=== PATIENT | female | born 1990 | race Caucasian/White ===

== ENCOUNTER 2017-06-14 16:31 | Day surgery (SDC) | payer OTHER ==
[2017-06-14 17:09] VITALS: BP 128/77; TEMP 98.5
[2017-06-14 17:10] VITALS: BMI 29.2
--- NOTE | 2017-06-14 19:29 | PDOC.LDHP ---
Labor and Delivery H&P Chief complaint: contractions HPI: 27 y/o at 36w5d, patient of Dr. Hinds, presents with contractions getting stronger since 1500. Denies VB, LOF, or decreased FM. ROS neg for HEENT, cv, pulm, gi, gu, neuro, psych, skin, musculoskeletal or constitutional symptoms other than mentioned above. 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 status reassuring with reactive NST. - Plan -: D/c home with precautions. Advised to keep all appointments. Discussed with Dr. Falcon.
== END 2017-06-14 19:08 | disposition home or self-care (01) ==
LOC: L&D/OP 16:31
PROVIDERS: ATTEND Obstetrics & Gynecology
DX: O47.03 False labor before 37 completed weeks of gestation, third trimester (principal); O99.343 Other mental disorders complicating pregnancy, third trimester; F90.9 Attention-deficit hyperactivity disorder, unspecified type; F41.9 Anxiety disorder, unspecified; O99.353 Diseases of the nervous system complicating pregnancy, third trimester; G43.909 Migraine, unspecified, not intractable, without status migrainosus; Z3A.36 36 weeks gestation of pregnancy
CPT/HCPCS: 59025; 99283

== ENCOUNTER 2017-06-15 22:16 | Day surgery (SDC) | payer OTHER ==
[2017-06-15 22:49] VITALS: BP 130/74; TEMP 98.5; BMI 29.2
--- NOTE | 2017-06-16 02:39 | SS ---
OB TRIAGE NOTE REGULAR PHYSICIAN: Nuria Hinds M.D. EVALUATING PHYSICIAN: Conrad Zapien M.D. CHIEF COMPLAINT: Contractions through the day at home. HISTORY OF PRESENT ILLNESS: Ms. Easley is a 26-year-old G3, P1-0-1-1, estimated date of confinement o f 07/08/2017, who presents complaining of regular contractions throughout the day. She denies ruptur e of membranes or vaginal bleeding. She was seen yesterday with similar complaints. Vaginal exam at that time was 2 cm and unchanged. PAST OBSTETRICAL HISTORY: Includes one early elective termination and a 38-week term . PAST MEDICAL HISTORY: ADHD. CURRENT MEDICATIONS: vitamins only. PAST SURGICAL HISTORY: Orthopedic surgery to her left foot. ALLERGIES: No known allergies. SOCIAL HISTORY: Denies tobacco or alcohol use. REVIEW OF SYSTEMS: Denies nausea, vomiting, fever, chills, vaginal bleeding or rupture of membranes. PHYSICAL EXAMINATION: VITAL SIGNS: Stable. She is afebrile. ABDOMEN: Soft, nontender and gravid. PELVIC: By the labor nurse shows the cervix to be 2 cm, 50% effaced with the vertex high. She is re examined again an hour and a half from her initial exam and it remains unchanged. Her heart ra te tracing is stable. No decelerations are seen. Uterine contractions are seen every 5-7 minutes. ASSESSMENT: 1. A 36-1/2 week intrauterine . 2. Contractions but with unchanged cervix. PLAN: The patient will be discharged to home now. She was told to rest at home and to observe her c ontractions and to return should they get stronger. She was also told to return for vaginal bleeding or rupture of membranes. She voiced understanding of her discharge instructions and was discharged in good condition.
== END 2017-06-16 01:00 | disposition home or self-care (01) ==
LOC: L&D/OP 22:16
PROVIDERS: ATTEND Obstetrics & Gynecology
DX: O47.03 False labor before 37 completed weeks of gestation, third trimester (principal); O99.343 Other mental disorders complicating pregnancy, third trimester; F90.9 Attention-deficit hyperactivity disorder, unspecified type; Z3A.36 36 weeks gestation of pregnancy; Z79.899 Other long term (current) drug therapy
CPT/HCPCS: 99283

== ENCOUNTER 2017-06-26 09:34 | Inpatient (IN) | payer OTHER ==
[2017-06-26] MEDS: Lactated Ringer's 1,000 ML IV SCH ×2 (09:55→11:10)
[2017-06-26] MEDS ORDERED: Bupivacaine 0.5% 20 ML, fentaNYL Citrate/PF 400 MCG in Sodium Chloride 0.9% 72 ML EPIDURAL SCH (10:00)
[2017-06-26] MEDS ORDERED: DISCONTINUE ALL PREVIOUS NARCOTICS FS SCH (10:00)
[2017-06-26] MEDS ORDERED: Promethazine HCl 25 MG/ML VIAL IM PRN ×2 (10:02→11:05)
[2017-06-26] MEDS ORDERED: Carboprost 250 MCG/ML AMP IM PRN (10:02)
[2017-06-26] MEDS ORDERED: HYDROcodone/Acetaminophen 5/325 mg Tablet PO PRN ×4 (10:02→22:44)
[2017-06-26] MEDS ORDERED: Ibuprofen 800 MG TAB PO PRN (10:02)
[2017-06-26] MEDS ORDERED: Acetaminophen 500 MG TAB PO PRN (10:02)
[2017-06-26] MEDS ORDERED: Diphenoxylate HCl/Atropine Tablet PO PRN ×2 (10:02)
[2017-06-26] MEDS ORDERED: Ondansetron HCl/PF 4 MG/2 ML Vial IVP PRN ×2 (10:02→11:05)
[2017-06-26] MEDS ORDERED: NS / Oxytocin 40 units/1000ml 1,000 ML IV PRN (10:02)
[2017-06-26] MEDS ORDERED: Methylergonovine 0.2 MG/ML VIAL IM PRN (10:02)
[2017-06-26] MEDS ORDERED: Misoprostol 200 MCG TAB PR PRN (10:02)
[2017-06-26] MEDS ORDERED: Lidocaine 1% (PF) 30 ML VIAL SC PRN (10:02)
[2017-06-26 10:11] VITALS: BMI 29.3
[2017-06-26 10:11] LABS: Hemoglobin 12.6 g/dL (12.0-16.0); Mean Corpuscular HGB CONC 34.4 g/dL (32.0-36.0); Mean Corpuscular Hemoglobin 30.5 pg (27.0-31.0); Mean Corpuscular Volume 88.7 fl (81.0-99.0); Mean Platelet Volume 8.2 fL (7.4-10.4); Platelet Count 210 thou/uL (130-400); RBC Distribution Width 13.3 % (11.5-14.5); Red Blood Cell (RBC) Count 4.12 mill/uL (4.20-5.40); White Blood Cell (WBC) Count 8.5 thou/uL (4.8-10.8)
[2017-06-26 10:50] LABS: Hep B Surf Ag Non-Reactive S/CO (NonReactive); Syphilis Antibody Nonreactive (Nonreactive); Syphilis Antibody Index 0.02 S/CO (<1.00 Non-Reactive)
[2017-06-26] MEDS ORDERED: Naloxone HCl 0.4 mg/ml Vial IVP PRN ×2 (11:05)
[2017-06-26] MEDS ORDERED: Eucerin (Mineral Oil/Petrolatum,White) 30 gm Jar TOP PRN (11:05)
[2017-06-26] MEDS ORDERED: diphenhydrAMINE 50 MG/ML VIAL IVP PRN (11:05)
[2017-06-26] MEDS ORDERED: ePHEDrine/0.9% NaCl/PF SYRINGE 50 mg/10 ml SLOW IVP PRN (11:05)
[2017-06-26] MEDS ORDERED: Lactated Ringer's 500 ML IV PRN (11:05)
[2017-06-26] MEDS ORDERED: Acetaminophen 325 MG TAB PO PRN (11:05)
[2017-06-26] MEDS ORDERED: Communication Order-Pharmacy FS SCH (11:15)
[2017-06-26] MEDS ORDERED: Fentanyl 4mcg/Marcaine 0.1% Cassette 100 ML EPIDURAL SCH (11:15)
[2017-06-26] MEDS: LR 500 ML/Oxytocin 10 units 500 ML IV SCH (13:17)
[2017-06-26] MEDS ORDERED: diphenhydrAMINE 25 MG CAP PO PRN (15:54)
[2017-06-26] MEDS ORDERED: Zolpidem Tartrate 5 MG TAB PO PRN (15:54)
[2017-06-26] MEDS ORDERED: Bisacodyl 10 MG SUPP PR PRN (15:54)
[2017-06-26] MEDS ORDERED: Preparation H Ointment 28 GM TUBE PR PRN (15:54)
[2017-06-26] MEDS ORDERED: Adacel (T-DAP) 0.5 ML VIAL IM ONE (15:54)
[2017-06-26] MEDS ORDERED: Lanolin Ointment 7 GM TUBE TOP PRN (15:54)
[2017-06-26] MEDS ORDERED: Milk Of Magnesia 30 ML UDCUP PO PRN (15:54)
[2017-06-26] MEDS ORDERED: Benzocaine/Menthol 20-0.5% 60 ML CAN TOP PRN (15:54)
[2017-06-26] MEDS ORDERED: NS / Oxytocin 40 units/1000ml 1,000 ML IV SCH (16:00)
[2017-06-26] MEDS: Docusate Calcium (SURFAK) 240 MG CAP PO SCH (20:24)
[2017-06-26] MEDS: Ibuprofen 800 MG TAB PO SCH (20:24)
[2017-06-27] MEDS: Ibuprofen 800 MG TAB PO SCH ×2 (04:19→13:53)
[2017-06-27] MEDS ORDERED: Prenatal Vitamin 1 TAB PO SCH (09:00)
[2017-06-27] MEDS: Lactated Ringer's 1,000 ML IV SCH ×2 (09:14→09:25)
[2017-06-27] MEDS: Ferrous Sulfate 325 MG TAB PO SCH (09:14)
[2017-06-27] MEDS: Docusate Calcium (SURFAK) 240 MG CAP PO SCH (09:15)
[2017-06-27 12:44] VITALS: BP 127/84; TEMP 98.4
[2017-06-27] MEDS: LR 500 ML/Oxytocin 10 units 500 ML IV SCH (13:53)
--- NOTE | 2017-06-27 13:56 | DN ---
DATE OF ADMISSON: 06/26/2017 ADMITTING DIAGNOSES: 1. A 27-year-old G3, P1-0-1-1 who complained of a spontaneous rupture of membranes at 10:15 a.m. 2. GBS negative. 3. History of cystic fibrosis carrier by genetic testing without declined genetics follow up. 4. Known dilated renal calyces that were bilateral and stable on serial ultrasounds. 5. History of attention deficit hyperactivity disorder and anxiety off Adderall and Xanax and stable at baseline. PROCEDURE: Vaginal delivery. ANESTHESIA: Epidural. ESTIMATED BLOOD LOSS: 200 mL. SURGEON: Nuria Hinds MD COMPLICATIONS: None. CLINICAL HISTORY: This patient is a 27-year-old female who presented for her routine OB vi sit. She was evaluated and noted to be 4 cm, 60% effaced, and -3 station. The patient 2 days prior had an appointment and was a 3.5 cm. Same effacement and station. The patient was given labor preca utions and she noted that as she left the building, she had a spontaneous rupture of membranes. It w as grossly ruptured. She was advised then to go to the hospital for direct admission. Upon admissio n, the patient was extremely uncomfortable and requested an epidural for maternal analgesia. The epi dural was placed with adequate comfort and the patient continued to progress with the addition of Pit ocin after noting contractions were 5-7 minutes apart on the monitor. It is a category 1 tracing dur ing the entirety of the admission. The patient was able to progress to complete cervical dilation an d +2 station, practice push was done and noted a tracing abnormality, which was resolved with resusci tated maneuvers on labor and delivery. When the physician arrived to continue pushing, the patient d id well without any other tracing issues, the vertex was brought to the station and in NIKITA position. DETAILS OF PROCEDURE: With good maternal effort, the head was delivered. There was noted to be a nu chal cord x2 around the neck. This was reduced at the perineum, shortly thereafter the anterior shou lder followed by the posterior shoulder followed by the remainder of the 's body was delivered. The cord was doubly clamped and cut. The infant was placed on the maternal abdomen and the nurses in attendance to delivery were stimulating the baby. Cord blood was obtained and then the placenta w as delivered spontaneously intact with a 3-vessel cord. It was noted that there was a peripheral ins ertion of the cord as well as velamentous attachment without any disruption of the membranes. Once t he placenta was discarded. The uterus, vagina, and cervix were explored and noted to be free of any lacerations. The patient was expressed and noted to be firm at the fundus and was cleansed and redra ped and allowed to attend to her infant while doing skin to skin. The infant again was a male weighi ng 7 pounds 12 ounces with Apgars of 9 and 9 at 1 and 5 minutes respectively. There were no other is sues surrounding this delivery. All needle, sponge, lap, and instrument counts were correct x2 at th e end of the procedure.
== END 2017-06-27 17:15 | disposition home or self-care (01) | DRG 775 ==
LOC: L&D 09:34 → 3SW 18:24
PROVIDERS: ADMIT Obstetrics & Gynecology; ATTEND Obstetrics & Gynecology
PROC: 10E0XZZ Delivery of Products of Conception, External Approach (ICD-10-PCS; principal; 2017-06-26)
PROC: 4A0HXCZ Measurement of Products of Conception, Cardiac Rate, External Approach (ICD-10-PCS; 2017-06-26)
DX: O42.02 Full-term premature rupture of membranes, onset of labor within 24 hours of rupture (principal); O99.344 Other mental disorders complicating childbirth; F90.9 Attention-deficit hyperactivity disorder, unspecified type; F41.9 Anxiety disorder, unspecified; O99.824 Streptococcus B carrier state complicating childbirth; O99.02 Anemia complicating childbirth; D64.9 Anemia, unspecified; Z3A.38 38 weeks gestation of pregnancy; Z37.0 Single live birth
CPT/HCPCS: 51702; 85027; 86780; 86850; 86900; 86901; 87340; J2001; J3010; J3490; J7050

== ENCOUNTER 2019-01-30 15:08 | Emergency (ER) | payer BC, OTHER ==
[~2019-01-30 15:08] MED LIST: Iopamidol-370 76% 500 ML 1 ML ONE
[2019-01-30] MEDS ORDERED: Lorazepam 2 MG/ML VIAL ONE (15:51)
[2019-01-30 16:02] LABS: #Eosinphils 0.1 thou/uL (0.0-0.7); #Lymphocytes 1.9 thou/uL (1.20-3.40); #Monocytes 0.5 thou/uL (0.11-0.59); #Neutrophils 11.8 thou/uL (1.40-6.50); %Eosinophils 0.4 % (0.0-10.0); %Lymphocytes 13.2 % (21.0-51.0); %Monocytes 3.5 % (0.0-10.0); %Neutrophils 82.8 % (42.0-75.0); Hemoglobin 15.5 g/dL (12.0-16.0); Mean Corpuscular HGB CONC 35.6 g/dL (32.0-36.0); Mean Corpuscular Hemoglobin 31.4 pg (27.0-31.0); Mean Corpuscular Volume 88.3 fL (78.0-98.0); Mean Platelet Volume 7.5 fL (7.4-10.4); Platelet Count 290 thou/uL (130-400); RBC Distribution Width 11.3 % (11.5-14.5); Red Blood Cell (RBC) Count 4.92 mill/uL (4.20-5.40); White Blood Cell (WBC) Count 14.3 thou/uL (4.8-10.8)
[2019-01-30 16:24] LABS: ALT (SGPT) 12 U/L (8-55); AST (SGOT) 15 U/L (5-34); Albumin 4.9 g/dL (3.5-5.0); Alkaline Phosphatase 82 U/L (40-110); Anion Gap 13 mmol/L (10-20); BUN (Urea Nitrogen) 14 mg/dL (7.0-18.7); Bilirubin, Total 0.6 mg/dL (0.2-1.2); CK (CPK) 99 U/L (29-168); Calc. Creatinine Clearance 0 mL/min (70-130); Calcium 9.9 mg/dL (7.8-10.44); Carbon Dioxide 24 mmol/L (22-29); Chloride 106 mmol/L (98-107); Estimated GFR-MDRD 75; Globulin 2.5 g/dL (2.4-3.5); Glucose 138 mg/dL (70-105); Potassium 4.2 mmol/L (3.5-5.1); Protein, Total 7.4 g/dL (6.0-8.3); Sodium 139 mmol/L (136-145)
[2019-01-30 16:30] LABS: BHCG - Serum Negative (NEGATIVE); Pregs Control Background? CLEAR/WHITE (CLR/WHITE); Pregs Control Bar Appear? YES (CONTROL BAR)
[2019-01-30] MEDS ORDERED: Ketorolac Tromethamine 30 MG/ML VIAL ONE (17:03)
--- NOTE | 2019-01-30 17:09 | CT ---
CTA Angio Chest W WO Con HISTORY: Chest pain COMPARISON: None. FINDINGS: The lungs are clear of any infiltrative process. There is no significant mediastinal or hilar lymphadenopathy. The thoracic aorta is normal in caliber . There is good pulmonary artery opacification and no CT evidence for pulmonary embolus. Visualized liver parenchyma shows no focal findings. Right and left adrenal glands are normal IMPRESSION: No CT evidence for pulmonary embolus.
--- NOTE | 2019-02-03 13:53 | EKG ---
Test Reason : Blood Pressure : / mmHG Vent. Rate : 102 BPM Atrial Rate : 102 BPM P-R Int : 154 ms QRS Dur : 076 ms QT Int : 328 ms P-R-T Axes : 073 041 050 degrees QTc Int : 427 ms Sinus tachycardia Possible Left atrial enlargement Borderline ECG Confirmed by YUE HIGHTOWER MD ([id number]), web editor MARCO BLACK ([id number]) on 02/03/2019 1:53:25 PM Referred By: Confirmed By:YUE HIGHTOWER MD
== END 2019-01-30 19:25 | disposition home or self-care (01) ==
LOC: ERS 15:08
DX: R07.9 Chest pain, unspecified (principal); F41.1 Generalized anxiety disorder; R19.7 Diarrhea, unspecified; F32.9 Major depressive disorder, single episode, unspecified; Z79.899 Other long term (current) drug therapy
CPT/HCPCS: 71275; 80053; 82550; 83690; 84484; 84703; 85025; 93005; 96361; 96372; 96374; 96375; J0500; J1885; J2060; Q9967

== ENCOUNTER 2019-02-12 07:59 | Outpatient (CLI) | payer BC ==
--- NOTE | 2019-02-12 08:13 | ULT ---
GALLBLADDER ULTRASOUND: HISTORY: Right upper quadrant abdominal pain FINDINGS: The liver demonstrates homogeneous echotexture without focal mass or intrahepatic biliary ductal dila tation. No gallstones, gallbladder wall thickening or pericholecystic fluid are seen. The right kidney and pancreas are normal. The common duct [id number] in diameter. No free fluid is seen in the [place]'s pouch. IMPRESSION: Normal exam.
== END 2019-02-12 08:00 | disposition home or self-care (01) ==
LOC: BICULT 07:59
PROVIDERS: ATTEND Specialist
DX: R10.11 Right upper quadrant pain (principal)
CPT/HCPCS: 76705

== ENCOUNTER 2019-02-18 11:02 | Outpatient (CLI) | payer BC ==
--- NOTE | 2019-02-18 15:47 | NM ---
HEPATOBILIARY SCAN: HISTORY:Right upper quadrant pain RADIOPHARMACEUTICAL: 5.1 mCi Technetium 99m Mebrofenin injected intravenously FINDINGS: There is normal tracer extraction by the liver with normal excretion into the biliary tracts and smal l bowel loops and normal filling of the gallbladder. The calculated gallbladder ejection fraction following an oral fatty meal measures 95%. IMPRESSION:Normal exam.
== END 2019-02-18 11:03 | disposition home or self-care (01) ==
LOC: NM 11:02
PROVIDERS: ATTEND Specialist
DX: K81.9 Cholecystitis, unspecified (principal); R10.9 Unspecified abdominal pain
CPT/HCPCS: 78227; A9537

== ENCOUNTER 2019-08-04 05:53 | Outpatient (CLI) | payer BC, OTHER ==
[2019-08-04 11:25] LABS: BHCG - Serum Negative (NEGATIVE); Pregs Control Background? CLEAR/WHITE (CLR/WHITE); Pregs Control Bar Appear? YES (CONTROL BAR)
[2019-08-04 11:29] LABS: #Eosinphils 0.2 thou/uL (0.0-0.7); #Lymphocytes 2.8 thou/uL (1.20-3.40); #Monocytes 0.6 thou/uL (0.11-0.59); #Neutrophils 5.2 thou/uL (1.40-6.50); %Basophils 0.4 % (0.0-1.0); %Eosinophils 1.9 % (0.0-10.0); %Lymphocytes 31.5 % (21.0-51.0); %Neutrophils 59.2 % (42.0-75.0); Hemoglobin 13.4 g/dL (12.0-16.0); Mean Corpuscular HGB CONC 35.1 g/dL (32.0-36.0); Mean Corpuscular Volume 91.2 fL (78.0-98.0); Mean Platelet Volume 8.1 fL (7.4-10.4); Platelet Count 272 thou/uL (130-400); RBC Distribution Width 11.4 % (11.5-14.5); Red Blood Cell (RBC) Count 4.19 mill/uL (4.20-5.40); White Blood Cell (WBC) Count 8.8 thou/uL (4.8-10.8)
[2019-08-04 11:45] LABS: ALT (SGPT) 12 U/L (8-55); AST (SGOT) 14 U/L (5-34); Albumin 4.5 g/dL (3.5-5.0); Alkaline Phosphatase 75 U/L (40-110); Anion Gap 13 mmol/L (10-20); BUN (Urea Nitrogen) 12 mg/dL (7.0-18.7); Bilirubin, Total 0.2 mg/dL (0.2-1.2); Calc. Creatinine Clearance 0 mL/min (70-130); Calcium 9.3 mg/dL (7.8-10.44); Carbon Dioxide 25 mmol/L (22-29); Chloride 107 mmol/L (98-107); Estimated GFR-MDRD Greater than 90; Globulin 2.4 g/dL (2.4-3.5); Glucose 86 mg/dL (70-105); Potassium 4.8 mmol/L (3.5-5.1); Protein, Total 6.9 g/dL (6.0-8.3); Sodium 140 mmol/L (136-145)
[2019-08-05 13:53] LABS: SARS-CoV-2 MS2 Positive; SARS-CoV-2 N Gene Negative; SARS-CoV-2 S Gene Negative; SARS-CoV-2 orf1ab Negative
== END 2019-08-04 05:54 | disposition home or self-care (01) ==
LOC: LABBT 05:53
PROVIDERS: ATTEND Specialist
DX: Z01.812 Encounter for preprocedural laboratory examination (principal); Z11.59 Encounter for screening for other viral diseases; K81.9 Cholecystitis, unspecified
CPT/HCPCS: 80053; 84703; 85025; 87635; U0003

== ENCOUNTER 2019-08-07 06:10 | Day surgery (SDC) | payer BC ==
[2019-08-03 12:47] VITALS: BMI 23.6
[2019-08-07] MEDS ORDERED: Acetaminophen 500 MG TAB ONE (06:36)
[2019-08-07] MEDS ORDERED: Ketorolac Tromethamine 30 MG/ML VIAL ONE (06:36)
[2019-08-07] MEDS ORDERED: Scopolamine 1.5 mg/72 hour Patch ONE (06:45)
[2019-08-07] MEDS ORDERED: Lidocaine 1% w/Epinephrine 1:100K 20 ML VIAL ONE (06:51)
[2019-08-07] MEDS ORDERED: Bupivacaine PF 0.5% 30 ML VIAL ONE (06:51)
[2019-08-07] MEDS ORDERED: Midazolam HCl 2 mg/2 ml Vial ONE (07:36)
[2019-08-07] MEDS ORDERED: Fentanyl 100 MCG/2 ML VIAL ONE ×3 (07:38→10:06)
--- NOTE | 2019-08-07 09:50 | OP ---
DATE OF PROCEDURE: 08/07/2019 PREOPERATIVE DIAGNOSES: Chronic cholecystitis, acalculous. POSTOPERATIVE DIAGNOSES: Chronic cholecystitis, acalculous. PROCEDURE PERFORMED: Laparoscopic video cholecystectomy. ANESTHESIA: General, local 0.5% Marcaine with epinephrine, 30 mL mixed with 1% Xylocaine with epinephrine, 20 mL. DESCRIPTION OF PROCEDURE: The patient was taken to the operating room, under general anesthesia, abdomen was prepared with ChloraPrep and draped in routine fashion. Local anesthetic mixture was infiltrated into the skin and subcutaneous tissue about each port site. Infraumbilical incision was made. Pneumoperitoneum to 15 mm was obtained with a Veress needle, replacing with a 5 port. Video laparoscope was inserted. Right subcostal incision was made at midclavicular entrance line, and the 5 port was placed. Right subxiphoid incision was made, and 11 port was placed. Liver appeared to be normal. Gallbladder was distended with bile and grossly appeared to be normal. No other abnormalities noted within the abdominal cavity. Fundus of the gallbladder was grasped at the cephalad. Infundibulum was grasped and reflected laterally. Cystic artery and duct were dissected free. Critical view was obtained. Cystic artery and duct were doubly clipped proximally and divided. Gallbladder was dissected free from liver bed, obtaining good hemostasis prior to division of final peritoneal attachments. Gallbladder and contents were removed, submitted to Pathology. Good hemostasis assured with cautery. Pneumoperitoneum and irrigant were evacuated. All instruments were removed. All skin incisions were approximated with interrupted subdermal 4-0 Monocryl, and [place] glue was applied. The patient tolerated the procedure well. Job ID: [id number]
[2019-08-07] MEDS ORDERED: Labetalol HCl 100 MG/20 ML VIAL ONE (10:14)
[2019-08-07] MEDS ORDERED: HYDROcodone/Acetaminophen 5/325 mg Tablet ONE ×2 (10:56)
[2019-08-07] MEDS ORDERED: Ondansetron PF 4 MG/2 ML Vial ONE (10:58)
[2019-08-07] MEDS ORDERED: Rocuronium Bromide 10 MG/ML (10ML VIAL) ONE (10:58)
[2019-08-07] MEDS ORDERED: Dexamethasone 20 MG/5 ML VIAL ONE (10:58)
[2019-08-07] MEDS ORDERED: Glycopyrrolate 0.2 MG/ML 5 ML SYRINGE ONE (10:58)
[2019-08-07] MEDS ORDERED: Lidocaine 1% PF 5 ML VIAL ONE (10:58)
[2019-08-07] MEDS ORDERED: PROPOFOL 200 MG/20 ML VIAL ONE (10:58)
== END 2019-08-07 11:40 | disposition home or self-care (01) ==
LOC: SDC 06:10
PROVIDERS: ATTEND Specialist
PROC: 0FT44ZZ Resection of Gallbladder, Percutaneous Endoscopic Approach (ICD-10-PCS; principal; 2019-08-07)
DX: K81.1 Chronic cholecystitis (principal); Z79.899 Other long term (current) drug therapy
CPT/HCPCS: 88304; J0690; J1100; J1885; J2001; J2250; J2405; J2704; J3010; S0020

== ENCOUNTER 2019-10-26 11:42 | Outpatient (CLI) | payer BC ==
--- NOTE | 2019-10-26 12:15 | RAD ---
XR Knee Lt 4 View STANDARD HISTORY: Unilateral primary osteoarthritis of knee FINDINGS: No fracture or dislocation is identified. No significant osteophytosis is seen.
== END 2019-10-26 11:43 | disposition home or self-care (01) ==
LOC: BICRAD 11:42
PROVIDERS: ATTEND Specialist
DX: M17.12 Unilateral primary osteoarthritis, left knee (principal)

== ENCOUNTER 2021-03-24 15:31 | Outpatient (CLI) | payer BC | END 2021-03-24 15:32 | disposition home or self-care (01) | LOC: BICULT 15:31 | PROVIDERS: ATTEND Specialist | DX: E04.1 Nontoxic single thyroid nodule (principal) | CPT/HCPCS: 76536 ==

== ENCOUNTER 2021-04-06 12:42 | Day surgery (SDC) | payer BC ==
[2021-04-05 13:20] VITALS: BMI 22.8
[2021-04-06] MEDS ORDERED: Sodium Bicarbonate 2.5 MEQ/5 ML VIAL ONE (12:47)
[2021-04-06] MEDS ORDERED: Lidocaine 1% PF 5 ML VIAL ONE (12:47)
[2021-04-06 14:00] VITALS: BP 103/67
== END 2021-04-06 13:35 | disposition home or self-care (01) ==
LOC: ULT 12:42 → EDSTATUS 13:00 → ULT 13:35
PROVIDERS: ATTEND Specialist
PROC: 0G9G3ZX Drainage of Left Thyroid Gland Lobe, Percutaneous Approach, Diagnostic (ICD-10-PCS; principal; 2021-04-06)
DX: E04.1 Nontoxic single thyroid nodule (principal); Z79.899 Other long term (current) drug therapy
CPT/HCPCS: 10005; 88173; 88305

== ENCOUNTER 2022-04-12 08:24 | Outpatient (CLI) | payer BC | END 2022-04-12 08:25 | disposition home or self-care (01) | LOC: RAD 08:24 | PROVIDERS: ATTEND Internal Medicine Critical Care Medicine | DX: R06.00 Dyspnea, unspecified (principal) | CPT/HCPCS: 71046 ==

== ENCOUNTER 2022-06-06 12:00 | Inpatient (IN) | payer BC ==
[~2022-06-06 12:00] MED LIST changes: +Iopamidol 370 76% 100 ML VIAL ONE; -Iopamidol-370 76% 500 ML 1 ML ONE
[2022-06-06] MEDS ORDERED: Ipratropium/Albuterol 3 ML NEB ONE (12:12)
[2022-06-06] MEDS ORDERED: predniSONE 20 MG TAB ONE (12:14)
[2022-06-06 12:45] LABS: #Basophils 0.1 thou/uL (0.0-0.2); #Lymphocytes 1.5 thou/uL (1.20-3.40); #Monocytes 0.2 thou/uL (0.11-0.59); #Neutrophils 9.3 thou/uL (1.40-6.50); %Basophils 0.5 % (0.0-1.0); %Eosinophils 0.3 % (0.0-10.0); %Lymphocytes 13.5 % (21.0-51.0); %Monocytes 1.8 % (0.0-10.0); Hemoglobin 14.1 g/dL (12.0-16.0); Mean Corpuscular HGB CONC 35.4 g/dL (32.0-36.0); Mean Corpuscular Hemoglobin 32.2 pg (27.0-31.0); Mean Corpuscular Volume 91.1 fl (78.0-98.0); Mean Platelet Volume 6.9 fL (7.4-10.4); Platelet Count 388 10x3/uL (130-400); RBC Distribution Width 10.8 % (11.5-14.5); Red Blood Cell (RBC) Count 4.37 mill/uL (4.20-5.40); White Blood Cell (WBC) Count 11.1 10x3/uL (4.8-10.8)
[2022-06-06] MEDS ORDERED: Magnesium 2 GM/50 ML BAG (IN WATER) ONE ×2 (13:00→13:02)
[2022-06-06 13:14] LABS: BHCG - Serum Negative (NEGATIVE); Pregs Control Background? CLEAR/WHITE (CLR/WHITE); Pregs Control Bar Appear? YES (CONTROL BAR)
[2022-06-06 13:24] LABS: ALT (SGPT) 32 U/L (8-55); AST (SGOT) 25 U/L (5-34); Albumin 5.1 g/dL (3.5-5.0); Alkaline Phosphatase 82 U/L (40-110); Anion Gap 19 mmol/L (10-20); BUN (Urea Nitrogen) 12 mg/dL (7.0-18.7); Bilirubin, Total 0.4 mg/dL (0.2-1.2); Calc. Creatinine Clearance 0 mL/min (70-130); Calcium 10.5 mg/dL (7.8-10.44); Carbon Dioxide 16 mmol/L (22-29); Chloride 105 mmol/L (98-107); Estimated GFR 89; Globulin 2.9 g/dL (2.4-3.5); Glucose 122 mg/dL (70-105); Potassium 4.1 mmol/L (3.5-5.1); Sodium 136 mmol/L (136-145)
[2022-06-06] MEDS ORDERED: Ondansetron PF 4 MG/2 ML Vial ONE (13:46)
[2022-06-06] MEDS ORDERED: Morphine 4 MG/ML VIAL ONE (13:46)
[2022-06-06 14:51] LABS: SARS-CoV-2 NAA Rapid Test Not Detected (NotDetected)
[2022-06-06 16:27] VITALS: BMI 23.3
[2022-06-06] MEDS ORDERED: Ondansetron ODT 4 MG TAB PO PRN (17:06)
[2022-06-06] MEDS ORDERED: Acetaminophen/Codeine 30-300mg Tablet PO SCH (17:15)
[2022-06-06] MEDS ORDERED: Lorazepam 2 MG/ML VIAL SLOW IVP SCH ×2 (17:15→21:00)
[2022-06-06] MEDS: methylPREDNISolone Sod Succ 40 MG VIAL IVP SCH (17:43)
[2022-06-06] MEDS ORDERED: Magnesium 2 GM/50 ML(in water) 2 GM in Premix Bag 1 BAG IVPB SCH (18:00)
[2022-06-06] MEDS: Budesonide 0.5 MG/2 ML NEB NEB SCH (18:39)
[2022-06-06] MEDS: Promethazine 25 MG TAB PO PRN (19:43)
[2022-06-06] MEDS: Montelukast Sodium 10 mg Tablet PO SCH (21:06)
[2022-06-06] MEDS: Gabapentin 300 MG CAP PO SCH (21:06)
[2022-06-06] MEDS: Acetaminophen/Codeine 30-300mg Tablet PO SCH (21:06)
[2022-06-06] MEDS: traZODone HCl 50 MG TAB PO PRN (21:07)
[2022-06-06] MEDS: Benzonatate 100 MG CAP PO PRN (21:07)
[2022-06-06] MEDS: Famotidine 20 MG TAB PO SCH (21:07)
[2022-06-06] MEDS: tiZANidine HCl 4 MG TAB PO SCH (21:07)
[2022-06-06] MEDS: Diltiazem HCl SR 90 mg Capsule PO SCH (21:08)
[2022-06-07] MEDS: Acetaminophen/Codeine 30-300mg Tablet PO SCH ×6 (00:38→21:01)
[2022-06-07] MEDS: methylPREDNISolone Sod Succ 40 MG VIAL IVP SCH ×4 (00:39→17:55)
[2022-06-07] MEDS: Benzonatate 100 MG CAP PO PRN ×3 (05:13→20:45)
[2022-06-07] MEDS: Budesonide 0.5 MG/2 ML NEB NEB SCH ×2 (06:37→18:27)
[2022-06-07 08:35] LABS: #Lymphocytes 0.9 thou/uL (1.20-3.40); #Monocytes 0.4 thou/uL (0.11-0.59); #Neutrophils 13.4 thou/uL (1.40-6.50); %Eosinophils 0.2 % (0.0-10.0); %Monocytes 2.5 % (0.0-10.0); %Neutrophils 91.3 % (42.0-75.0); Hemoglobin 12.9 g/dL (12.0-16.0); Mean Corpuscular HGB CONC 35.8 g/dL (32.0-36.0); Mean Corpuscular Hemoglobin 32.9 pg (27.0-31.0); Mean Corpuscular Volume 91.9 fl (78.0-98.0); Mean Platelet Volume 7.3 fL (7.4-10.4); Platelet Count 315 10x3/uL (130-400); RBC Distribution Width 10.9 % (11.5-14.5); Red Blood Cell (RBC) Count 3.92 mill/uL (4.20-5.40); White Blood Cell (WBC) Count 14.7 10x3/uL (4.8-10.8)
[2022-06-07] MEDS: Famotidine 20 MG TAB PO SCH (09:04)
[2022-06-07] MEDS: Gabapentin 300 MG CAP PO SCH ×3 (09:04→20:44)
[2022-06-07] MEDS: tiZANidine HCl 4 MG TAB PO SCH ×3 (09:05→20:45)
[2022-06-07] MEDS: Diltiazem HCl SR 90 mg Capsule PO SCH ×2 (09:05→20:45)
[2022-06-07] MEDS: Promethazine 25 MG TAB PO PRN ×2 (12:45→20:54)
[2022-06-07] MEDS: traZODone HCl 50 MG TAB PO PRN (20:45)
[2022-06-07] MEDS: Montelukast Sodium 10 mg Tablet PO SCH (20:45)
[2022-06-08] MEDS: Acetaminophen/Codeine 30-300mg Tablet PO SCH ×6 (00:35→21:12)
[2022-06-08] MEDS: methylPREDNISolone Sod Succ 40 MG VIAL IVP SCH ×2 (00:36→05:38)
[2022-06-08] MEDS ORDERED: methylPREDNISolone Sod Succ 40 MG VIAL IVP SCH (08:10)
[2022-06-08] MEDS: Budesonide 0.5 MG/2 ML NEB NEB SCH ×2 (08:24→18:24)
[2022-06-08] MEDS: Benzonatate 100 MG CAP PO PRN ×3 (08:57→21:18)
[2022-06-08] MEDS: Gabapentin 300 MG CAP PO SCH ×3 (08:57→21:14)
[2022-06-08] MEDS: Diltiazem HCl SR 90 mg Capsule PO SCH ×2 (08:57→21:13)
[2022-06-08] MEDS: tiZANidine HCl 4 MG TAB PO SCH ×3 (08:58→21:13)
[2022-06-08] MEDS ORDERED: Theophylline ER 450 MG TAB PO SCH (09:00)
[2022-06-08] MEDS: methylPREDNISolone Sod Succ/PF 125 MG/2 ML VIAL IVP SCH ×2 (12:07→16:59)
[2022-06-08] MEDS ORDERED: Dextromethorphan 30 MG/5 ML (89 ML BOTTLE) PO PRN ×2 (14:08→14:11)
[2022-06-08] MEDS ORDERED: Ipratropium Bromide 0.03% Nasal Inhaler 30 ml Bottle EA NARE SCH (15:30)
[2022-06-08] MEDS: Montelukast Sodium 10 mg Tablet PO SCH (21:13)
[2022-06-08] MEDS: Ipratropium Bromide 0.03% Nasal Inhaler 30 ml Bottle EA NARE SCH (21:15)
[2022-06-08] MEDS: traZODone HCl 50 MG TAB PO PRN (21:18)
[2022-06-09] MEDS: methylPREDNISolone Sod Succ/PF 125 MG/2 ML VIAL IVP SCH ×2 (01:02→06:39)
[2022-06-09] MEDS: Acetaminophen/Codeine 30-300mg Tablet PO SCH ×6 (01:03→22:28)
[2022-06-09] MEDS: Budesonide 0.5 MG/2 ML NEB NEB SCH ×2 (07:42→18:32)
[2022-06-09] MEDS: tiZANidine HCl 4 MG TAB PO SCH ×3 (09:15→22:30)
[2022-06-09] MEDS: Diltiazem HCl SR 90 mg Capsule PO SCH ×2 (09:15→22:29)
[2022-06-09] MEDS: Gabapentin 300 MG CAP PO SCH ×3 (09:16→22:29)
[2022-06-09] MEDS: Ipratropium Bromide 0.03% Nasal Inhaler 30 ml Bottle EA NARE SCH ×3 (09:16→22:30)
[2022-06-09] MEDS ORDERED: azaTHIOprine 50 MG TAB PO SCH (11:00)
[2022-06-09] MEDS ORDERED: Mycophenolate 250 MG CAP PO SCH (11:15)
[2022-06-09] MEDS: methylPREDNISolone Sod Succ 40 MG VIAL IVP SCH ×2 (14:28→22:30)
[2022-06-09] MEDS: Promethazine 25 MG TAB PO PRN (17:13)
[2022-06-09] MEDS: traZODone HCl 50 MG TAB PO PRN (22:28)
[2022-06-09] MEDS: Montelukast Sodium 10 mg Tablet PO SCH (22:29)
[2022-06-09] MEDS: Benzonatate 100 MG CAP PO PRN (22:30)
[2022-06-09] MEDS: Mycophenolate 250 MG CAP PO SCH (22:33)
[2022-06-10] MEDS: Acetaminophen/Codeine 30-300mg Tablet PO SCH ×3 (02:39→07:36)
[2022-06-10] MEDS: methylPREDNISolone Sod Succ 40 MG VIAL IVP SCH (06:43)
[2022-06-10] MEDS: Benzonatate 100 MG CAP PO PRN (06:43)
[2022-06-10] MEDS: Budesonide 0.5 MG/2 ML NEB NEB SCH (07:11)
[2022-06-10] MEDS: Gabapentin 300 MG CAP PO SCH (07:35)
[2022-06-10] MEDS: Mycophenolate 250 MG CAP PO SCH (07:35)
[2022-06-10] MEDS: Diltiazem HCl SR 90 mg Capsule PO SCH (07:35)
[2022-06-10] MEDS: Ipratropium Bromide 0.03% Nasal Inhaler 30 ml Bottle EA NARE SCH (07:36)
[2022-06-10] MEDS: tiZANidine HCl 4 MG TAB PO SCH (07:36)
[2022-06-10] MEDS ORDERED: azaTHIOprine 50 MG TAB PO SCH (09:00)
[2022-06-10 11:25] VITALS: BP 132/78; TEMP 98.5
== END 2022-06-10 14:14 | disposition home or self-care (01) | DRG 202 ==
LOC: ERS 12:00 → T4-A 14:56 → OBSVTOIN 06-07 16:36 → 2NO 06-08 11:02
PROVIDERS: ADMIT Specialist; ATTEND Specialist
DX: J45.51 Severe persistent asthma with (acute) exacerbation (principal); M33.13 Other dermatomyositis without myopathy; F98.8 Other specified behavioral and emotional disorders with onset usually occurring in childhood and adolescence; F41.1 Generalized anxiety disorder; I10 Essential (primary) hypertension; F32.A Depression, unspecified; F90.9 Attention-deficit hyperactivity disorder, unspecified type; G43.909 Migraine, unspecified, not intractable, without status migrainosus; Z79.51 Long term (current) use of inhaled steroids; Z79.899 Other long term (current) drug therapy; Z90.49 Acquired absence of other specified parts of digestive tract; Z79.01 Long term (current) use of anticoagulants
CPT/HCPCS: 36415; 36416; 71045; 71275; 76536; 80053; 82785; 83880; 84443; 84484; 84703; 85025; 85379; 93005; 93306; 94640; 96365; 96366; 96375; 96376; G0378; J1650; J2060; J2270; J2405; J2920; J2930; J3475; J7500; J7512; J7517; J7611; J7620; J7626; Q0169; Q9967

== ENCOUNTER 2022-08-13 07:41 | Outpatient (CLI) | payer BC ==
[2022-08-13 08:46] LABS: Hemoglobin 13.8 g/dL (12.0-15.5); Mean Corpuscular HGB CONC 32.9 g/dL (32.0-36.0); Mean Corpuscular Hemoglobin 30.3 pg (27.0-33.0); Mean Corpuscular Volume 91.9 fl (81.6-98.3); Mean Platelet Volume 9.5 fl (7.4-10.4); Platelet Count 312 10x3/uL (150-450); RBC Distribution Width 13.1 % (11.5-14.5); Red Blood Cell (RBC) Count 4.56 10x6/uL (3.90-5.03); White Blood Cell (WBC) Count 7.4 10x3/uL (3.5-10.5)
[2022-08-13 08:50] LABS: BHCG - Serum Negative (NEGATIVE)
[2022-08-13 08:51] LABS: Pregs Control Background? CLEAR/WHITE (CLR/WHITE); Pregs Control Bar Appear? YES (CONTROL BAR)
[2022-08-13 08:57] LABS: Anion Gap 15 mmol/L (10-20); BUN (Urea Nitrogen) 11 mg/dL (7.0-18.7); Calc. Creatinine Clearance 0 mL/min (70-130); Calcium 9.5 mg/dL (7.8-10.44); Carbon Dioxide 21 mmol/L (22-29); Chloride 106 mmol/L (98-107); Estimated GFR 100; Glucose 86 mg/dL (70-105); Potassium 4.6 mmol/L (3.5-5.1); Sodium 137 mmol/L (136-145)
== END 2022-08-13 07:42 | disposition home or self-care (01) ==
LOC: LABBT 07:41
PROVIDERS: ATTEND Otolaryngology Plastic Surgery within the Head & Neck
DX: Z01.812 Encounter for preprocedural laboratory examination (principal); J32.0 Chronic maxillary sinusitis; J32.1 Chronic frontal sinusitis; J32.2 Chronic ethmoidal sinusitis; J34.3 Hypertrophy of nasal turbinates; J32.3 Chronic sphenoidal sinusitis
CPT/HCPCS: 80048; 84703; 85027

== ENCOUNTER 2022-08-15 10:34 | Day surgery (SDC) | payer BC ==
[2022-08-13 08:15] VITALS: BMI 24.9
[2022-08-15] MEDS ORDERED: Fentanyl 250 MCG/5 ML VIAL ONE (11:15)
[2022-08-15] MEDS ORDERED: Oxymetazoline HCl 0.05% (30 ML BOT) ONE ×2 (12:17→12:45)
[2022-08-15] MEDS ORDERED: EPINEPHrine 1 MG/ML AMP ONE (12:45)
[2022-08-15] MEDS ORDERED: Midazolam HCl 2 mg/2 ml Vial ONE ×2 (12:45→14:53)
[2022-08-15] MEDS ORDERED: Lidocaine 1% (PF) 30 ML VIAL ONE (12:45)
[2022-08-15] MEDS ORDERED: PROPOFOL 200 MG/20 ML VIAL ONE (13:15)
[2022-08-15] MEDS ORDERED: Dexamethasone 20 MG/5 ML VIAL ONE (13:15)
[2022-08-15] MEDS ORDERED: Lidocaine 1% PF 5 ML VIAL ONE (13:15)
[2022-08-15] MEDS ORDERED: Rocuronium Bromide 10 MG/ML (10ML VIAL) ONE (13:15)
[2022-08-15] MEDS ORDERED: Ondansetron PF 4 MG/2 ML Vial ONE (13:15)
[2022-08-15] MEDS ORDERED: Ketorolac Tromethamine 30 MG/ML VIAL ONE (13:15)
[2022-08-15] MEDS ORDERED: fentaNYL PF 100 MCG/2 ML SYRINGE ONE (14:14)
[2022-08-15] MEDS ORDERED: Dexmedetomidine 200 MCG/2 ML VIAL ONE (14:32)
[2022-08-15] MEDS ORDERED: fentaNYL 50 mcg/mL 1 mL Vial ONE (14:40)
== END 2022-08-15 17:20 | disposition home or self-care (01) ==
LOC: SDC 10:34
PROVIDERS: ATTEND Otolaryngology Plastic Surgery within the Head & Neck
PROC: 09BT8ZZ Excision of Left Frontal Sinus, Via Natural or Artificial Opening Endoscopic (ICD-10-PCS; principal; 2022-08-15)
PROC: 09BU4ZZ Excision of Right Ethmoid Sinus, Percutaneous Endoscopic Approach (ICD-10-PCS; principal; 2022-08-15)
PROC: 09BV4ZZ Excision of Left Ethmoid Sinus, Percutaneous Endoscopic Approach (ICD-10-PCS; principal; 2022-08-15)
DX: J34.3 Hypertrophy of nasal turbinates (principal); J32.4 Chronic pansinusitis; J01.80 Other acute sinusitis; J45.909 Unspecified asthma, uncomplicated; Z90.49 Acquired absence of other specified parts of digestive tract
CPT/HCPCS: 87070; 87205; J0171; J1100; J1885; J2001; J2250; J2405; J2704; J3010; J7611

== ENCOUNTER 2022-10-17 10:46 | Outpatient (CLI) | payer BC | END 2022-10-17 10:47 | disposition home or self-care (01) | LOC: RAD 10:46 | PROVIDERS: ATTEND Plastic Surgery Surgery of the Hand | DX: R06.00 Dyspnea, unspecified (principal) | CPT/HCPCS: 71046 ==

== ENCOUNTER 2022-10-20 13:51 | Emergency (ER) | payer BC ==
[2022-10-20] MEDS ORDERED: LORazepam 2 MG/ML SYR.(CARPUJECT) ONE (13:56)
[2022-10-20] MEDS ORDERED: Ipratropium/Albuterol 3 ML NEB ONE (13:57)
[2022-10-20 14:18] LABS: Actual Bicarbonate (HCO3v) 15.7 mEq/L (22-28); Analyzer IN Cardio ER; Base Excess -3.1 mEq/L (-2.0 to +3.0); Chloride (VBG) 103 mmol/L (98-106); Hematocrit-VBG 44 % (36.0-47.0); Hemoglobin (Hb) 14.8 g/dL (11.7-15.5); pH (venous) 7.582 (7.32-7.43)
[2022-10-20 14:23] LABS: #Monocytes 0.2 thou/uL (0.11-0.59); #Neutrophils 4.5 thou/uL (1.40-6.50); %Basophils 0.2 % (0.0-1.0); %Lymphocytes 20.1 % (21.0-51.0); %Monocytes 3.7 % (0.0-10.0); %Neutrophils 75.5 % (42.0-75.0); Hematocrit 38.4 % (36.0-47.0); Hemoglobin 13.3 g/dL (12.0-16.0); Mean Corpuscular HGB CONC 34.6 g/dL (32.0-36.0); Mean Corpuscular Hemoglobin 30.3 pg (27.0-31.0); Mean Corpuscular Volume 87.5 fl (78.0-98.0); Mean Platelet Volume 9.1 fL (7.4-10.4); Platelet Count 409 10x3/uL (130-400); RBC Distribution Width 12.2 % (11.5-14.5); Red Blood Cell (RBC) Count 4.39 mill/uL (4.20-5.40); White Blood Cell (WBC) Count 5.9 10x3/uL (4.8-10.8)
[2022-10-20 14:33] LABS: BHCG - Serum Negative (NEGATIVE); Pregs Control Background? CLEAR/WHITE (CLR/WHITE); Pregs Control Bar Appear? YES (CONTROL BAR)
[2022-10-20] MEDS ORDERED: Morphine 4 MG/ML VIAL ONE (14:37)
[2022-10-20 14:39] LABS: ALT (SGPT) 19 U/L (8-55); AST (SGOT) 19 U/L (5-34); Albumin 5.3 g/dL (3.5-5.0); Alkaline Phosphatase 78 U/L (40-110); Anion Gap 19 mmol/L (10-20); BUN (Urea Nitrogen) 8 mg/dL (7.0-18.7); Bilirubin, Total 0.4 mg/dL (0.2-1.2); Calc. Creatinine Clearance 0 mL/min (70-130); Calcium 10.2 mg/dL (7.8-10.44); Carbon Dioxide 17 mmol/L (22-29); Chloride 103 mmol/L (98-107); Estimated GFR 97; Globulin 2.5 g/dL (2.4-3.5); Glucose 112 mg/dL (70-105); Protein, Total 7.8 g/dL (6.0-8.3); Sodium 135 mmol/L (136-145)
[2022-10-20 14:53] LABS: Troponin I Less than 0.010 ng/mL (< 0.028)
[2022-10-20] MEDS ORDERED: Sodium Chloride For Inhalation 0.9% 3 ML NEB ONE (14:56)
[2022-10-20] MEDS ORDERED: Racepinephrine 2.25% 0.5 ML NEB ONE (14:56)
[2022-10-20] MEDS ORDERED: Mag-Al 1200 mg/1200 mg/30 ML UDCUP PO SCH (15:30)
[2022-10-20] MEDS ORDERED: Mag-Al Plus 1200 MG/1200 MG/120 MG/30 ML UDCUP PO SCH (15:45)
== END 2022-10-20 18:30 | disposition home or self-care (01) ==
LOC: ERS 13:51
DX: J45.901 Unspecified asthma with (acute) exacerbation (principal); F41.9 Anxiety disorder, unspecified; I10 Essential (primary) hypertension; Z79.899 Other long term (current) drug therapy
CPT/HCPCS: 36415; 71045; 80053; 82805; 83605; 84484; 84703; 85025; 85379; 93005; 94640; 96361; 96374; 96375; J1790; J2060; J2270; J7620

== ENCOUNTER 2023-02-18 13:20 | Inpatient (IN) | payer BC ==
[2023-02-18 13:55] LABS: #Monocytes 0.4 thou/uL (0.11-0.59); #Neutrophils 7.1 thou/uL (1.40-6.50); %Basophils 0.3 % (0.0-1.0); %Eosinophils 0.2 % (0.0-10.0); %Monocytes 3.6 % (0.0-10.0); %Neutrophils 69.5 % (42.0-75.0); Hematocrit 37.1 % (36.0-47.0); Hemoglobin 13.1 g/dL (12.0-16.0); Mean Corpuscular HGB CONC 35.3 g/dL (32.0-36.0); Mean Corpuscular Hemoglobin 31.2 pg (27.0-31.0); Mean Corpuscular Volume 88.3 fl (78.0-98.0); Mean Platelet Volume 9.2 fL (7.4-10.4); Platelet Count 392 10x3/uL (130-400); RBC Distribution Width 11.9 % (11.5-14.5); White Blood Cell (WBC) Count 10.2 10x3/uL (4.8-10.8)
[2023-02-18 13:58] LABS: Actual Bicarbonate (HCO3v) 19.3 mEq/L (22-28); Base Excess -2.8 mEq/L (-2.0 to +3.0); Calcium, Ionized (venous) 1.19 mmol/L (1.16-1.32); Chloride (VBG) 102 mmol/L (98-106); Hematocrit-VBG 41 % (36.0-47.0); Hemoglobin (Hb) 13.8 g/dL (11.7-15.5); Potassium (VBG) 4.74 mmol/L (3.70-5.30); Sodium 139 mmol/L (133-146); pH (venous) 7.471 (7.32-7.43)
[2023-02-18] MEDS ORDERED: methylPREDNISolone Sod Succ/PF 125 MG/2 ML VIAL ONE (13:59)
[2023-02-18] MEDS ORDERED: Ipratropium/Albuterol 3 ML NEB ONE ×3 (13:59→23:16)
[2023-02-18 14:13] LABS: INR-International Normal Ratio 0.9; PTT 25.1 sec (22.9-36.1); Prothrombin Time 12.7 sec (12.0-14.7)
[2023-02-18 14:19] LABS: Troponin I Less than 0.010 ng/mL (< 0.028)
[2023-02-18] MEDS ORDERED: Magnesium 2 GM/50 ML BAG (IN WATER) ONE (14:36)
[2023-02-18 14:48] LABS: ALT (SGPT) 17 U/L (8-55); AST (SGOT) 16 U/L (5-34); Albumin 5.1 g/dL (3.5-5.0); Alkaline Phosphatase 72 U/L (40-110); Anion Gap 21 mmol/L (10-20); BUN (Urea Nitrogen) 10 mg/dL (7.0-18.7); Bilirubin, Total 0.3 mg/dL (0.2-1.2); Calc. Creatinine Clearance 0 mL/min (70-130); Carbon Dioxide 17 mmol/L (22-29); Chloride 106 mmol/L (98-107); Estimated GFR 106; Globulin 2.6 g/dL (2.4-3.5); Glucose 100 mg/dL (70-105); Potassium 4.8 mmol/L (3.5-5.1); Protein, Total 7.7 g/dL (6.0-8.3); Sodium 139 mmol/L (136-145)
[2023-02-18] MEDS ORDERED: Morphine 4 MG/ML VIAL ONE (15:13)
[2023-02-18 16:10] LABS: BHCG - Serum Negative (NEGATIVE); Pregs Control Background? CLEAR/WHITE (CLR/WHITE); Pregs Control Bar Appear? YES (CONTROL BAR)
[2023-02-18] MEDS ORDERED: Lidocaine 4% PF 5 ML AMP NEB SCH ×3 (16:15→23:00)
[2023-02-18] MEDS ORDERED: Iopamidol-370 76% 500 ML MDV (1 ML CHARGE) ONE (16:15)
[2023-02-18] MEDS ORDERED: Benzonatate 100 MG CAP ONE ×2 (17:12→22:22)
[2023-02-18] MEDS ORDERED: Ondansetron PF 4 MG/2 ML Vial ONE (17:41)
[2023-02-18] MEDS ORDERED: LORazepam 2 MG/ML SYR.(CARPUJECT) ONE ×2 (17:42→20:11)
[2023-02-18] MEDS ORDERED: Acetaminophen 325 MG TAB PO PRN (18:06)
[2023-02-18] MEDS ORDERED: Acetaminophen 650 MG Suppository PR PRN (18:06)
[2023-02-18] MEDS ORDERED: Guaifenesin DM 100-10/5 ML UDCUP PO PRN (18:06)
[2023-02-18] MEDS ORDERED: Albuterol 200 PUFF (6.7GM INHALER) INH PRN (18:34)
[2023-02-18] MEDS ORDERED: Ipratropium/Albuterol 3 ML NEB NEB SCH (19:00)
[2023-02-18] MEDS ORDERED: Pantoprazole 40 MG VIAL IVP SCH (19:45)
[2023-02-18] MEDS ORDERED: Ketorolac Tromethamine 30 MG (1 mL) VIAL IVP SCH (19:45)
[2023-02-18] MEDS ORDERED: LORazepam 2 MG/ML SYR.(CARPUJECT) IVP SCH (20:00)
[2023-02-18] MEDS ORDERED: Pantoprazole 40 MG VIAL ONE (20:11)
[2023-02-18] MEDS ORDERED: Ketorolac Tromethamine 30 MG (1 mL) VIAL ONE (20:14)
[2023-02-18] MEDS ORDERED: Guaifenesin DM 100-10/5 ML UDCUP ONE (20:16)
[2023-02-18] MEDS: Guaifenesin DM 100-10/5 ML UDCUP PO SCH (20:27)
[2023-02-18] MEDS: Benzonatate 100 MG CAP PO SCH (22:24)
[2023-02-18] MEDS: Ipratropium/Albuterol 3 ML NEB NEB SCH (23:21)
[2023-02-18] MEDS: Montelukast Sodium 10 mg Tablet PO SCH (23:45)
[2023-02-18] MEDS: dilTIAZem SR 90 MG CAP PO SCH (23:45)
[2023-02-19] MEDS: Benzonatate 100 MG CAP PO SCH ×6 (03:06→20:59)
[2023-02-19] MEDS: Guaifenesin DM 100-10/5 ML UDCUP PO SCH ×6 (03:06→20:59)
[2023-02-19 04:31] LABS: SARS-CoV-2 NAA Rapid Test Not Detected (NotDetected)
[2023-02-19] MEDS ORDERED: methylPREDNISolone Sod Succ 40 MG VIAL IVP SCH (06:00)
[2023-02-19] MEDS ORDERED: Benzonatate 100 MG CAP ONE ×2 (06:09→09:01)
[2023-02-19] MEDS ORDERED: Guaifenesin DM 100-10/5 ML UDCUP ONE ×3 (06:09→12:51)
[2023-02-19] MEDS ORDERED: methylPREDNISolone Sod Succ 40 MG VIAL ONE (06:09)
[2023-02-19 06:43] LABS: #Monocytes 0.7 thou/uL (0.11-0.59); #Neutrophils 8.5 thou/uL (1.40-6.50); %Basophils 0.1 % (0.0-1.0); %Lymphocytes 13.1 % (21.0-51.0); %Monocytes 6.7 % (0.0-10.0); %Neutrophils 79.7 % (42.0-75.0); Hematocrit 34.4 % (36.0-47.0); Hemoglobin 11.7 g/dL (12.0-16.0); Mean Corpuscular Hemoglobin 30.8 pg (27.0-31.0); Mean Corpuscular Volume 90.5 fl (78.0-98.0); Mean Platelet Volume 9.6 fL (7.4-10.4); Platelet Count 327 10x3/uL (130-400); RBC Distribution Width 12.3 % (11.5-14.5); White Blood Cell (WBC) Count 10.7 10x3/uL (4.8-10.8)
[2023-02-19 07:22] LABS: Anion Gap 13 mmol/L (10-20); BUN (Urea Nitrogen) 9 mg/dL (7.0-18.7); Calc. Creatinine Clearance 135 mL/min (70-130); Calcium 9.3 mg/dL (7.8-10.44); Carbon Dioxide 20 mmol/L (22-29); Chloride 109 mmol/L (98-107); Estimated GFR 119; Glucose 108 mg/dL (70-105); Sodium 137 mmol/L (136-145)
[2023-02-19] MEDS ORDERED: tiZANidine HCl 4 MG TAB PO PRN (07:52)
[2023-02-19] MEDS ORDERED: Promethazine HCl 12.5 MG in Sodium Chloride 0.9% 50 ML IVPB PRN (08:37)
[2023-02-19] MEDS ORDERED: Ipratropium/Albuterol 3 ML NEB NEB PRN (08:43)
[2023-02-19] MEDS ORDERED: Ipratropium/Albuterol 3 ML NEB ONE ×3 (08:49→14:11)
[2023-02-19] MEDS: Ipratropium/Albuterol 3 ML NEB NEB SCH ×4 (08:51→21:53)
[2023-02-19] MEDS: Mometasone 200 MCG/Formoterol 5 MCG 120 PUFF INHALER INH SCH ×2 (08:52→18:22)
[2023-02-19] MEDS ORDERED: Magnesium 2 GM/50 ML(in water) 2 GM in Premix 1 BAG IVPB SCH (09:00)
[2023-02-19] MEDS ORDERED: Valproate Sodium 500 MG in Sodium Chloride 0.9% 100 ML IVPB SCH (09:00)
[2023-02-19] MEDS ORDERED: Dexamethasone 10 MG/ML VIAL SLOW IVP SCH (09:00)
[2023-02-19] MEDS ORDERED: Dexamethasone 10 MG/ML VIAL ONE (09:01)
[2023-02-19] MEDS ORDERED: Magnesium 2 GM/50 ML BAG (IN WATER) ONE (09:02)
[2023-02-19] MEDS ORDERED: Gabapentin 300 MG CAP ONE (09:02)
[2023-02-19] MEDS ORDERED: Enoxaparin 40 MG (0.4 mL) SYRINGE ONE (09:03)
[2023-02-19] MEDS: Enoxaparin 40 MG (0.4 mL) SYRINGE SC SCH (09:44)
[2023-02-19] MEDS: Gabapentin 300 MG CAP PO SCH ×3 (09:46→21:01)
[2023-02-19] MEDS: Hydroxychloroquine Sulfate 200 MG TAB PO SCH ×2 (10:18→21:01)
[2023-02-19] MEDS: dilTIAZem SR 90 MG CAP PO SCH ×2 (10:18→21:01)
[2023-02-19] MEDS ORDERED: Ondansetron PF 4 MG/2 ML Vial ONE (12:10)
[2023-02-19] MEDS: Ondansetron PF 4 MG/2 ML Vial IVP PRN ×2 (12:56→21:01)
[2023-02-19] MEDS: Lactated Ringer's 500 ML IV SCH (12:57)
[2023-02-19] MEDS ORDERED: Fluticasone Propionate Nasal Spray 16 gm Bottle NASAL SCH (13:00)
[2023-02-19] MEDS ORDERED: Lorazepam 1 MG TAB ONE (13:06)
[2023-02-19] MEDS ORDERED: Acetaminophen 325 MG TAB ONE (13:07)
[2023-02-19] MEDS: Lorazepam 0.5 MG TAB PO PRN ×2 (13:12→21:10)
[2023-02-19 13:44] LABS: Amphetamine Detected (NotDetected); Barbiturates Screen Not Detected (NotDetected); Benzodiazepine Screen Detected (NotDetected); Cocaine Metabolite Screen Not Detected (NotDetected); Methadone Not Detected (NotDetected); Methamphetamine Not Detected (NotDetected); Opiate Screen Detected (NotDetected); Oxycodone Screen Not Detected (NotDetected); Phencyclidine (PCP) Not Detected (NotDetected); THC/Cannabinoid Screen Not Detected (NotDetected); Tricyclic Screen Not Detected (NotDetected)
[2023-02-19] MEDS: HYDROcodone/Acetaminophen 5/325 mg Tablet PO PRN ×2 (17:33→22:38)
[2023-02-19 18:28] VITALS: BMI 22.1
[2023-02-19] MEDS: Montelukast Sodium 10 mg Tablet PO SCH (21:01)
[2023-02-19] MEDS: traZODone HCl 50 MG TAB PO PRN (22:38)
[2023-02-20] MEDS: Guaifenesin DM 100-10/5 ML UDCUP PO SCH ×5 (00:20→19:34)
[2023-02-20] MEDS: Benzonatate 100 MG CAP PO SCH ×5 (00:20→19:41)
[2023-02-20] MEDS: Ondansetron PF 4 MG/2 ML Vial IVP PRN ×2 (07:19→18:30)
[2023-02-20] MEDS: HYDROcodone/Acetaminophen 5/325 mg Tablet PO PRN ×2 (07:19→18:29)
[2023-02-20] MEDS: Ipratropium/Albuterol 3 ML NEB NEB SCH ×4 (07:40→23:16)
[2023-02-20] MEDS: Mometasone 200 MCG/Formoterol 5 MCG 120 PUFF INHALER INH SCH ×2 (07:42→18:34)
[2023-02-20] MEDS: dilTIAZem SR 90 MG CAP PO SCH ×2 (09:14→21:10)
[2023-02-20] MEDS: Enoxaparin 40 MG (0.4 mL) SYRINGE SC SCH (09:15)
[2023-02-20] MEDS: Gabapentin 300 MG CAP PO SCH ×3 (09:15→21:10)
[2023-02-20] MEDS: Fluticasone Propionate Nasal Spray 16 gm Bottle NASAL SCH (09:15)
[2023-02-20] MEDS: Hydroxychloroquine Sulfate 200 MG TAB PO SCH ×2 (09:16→21:10)
[2023-02-20] MEDS ORDERED: predniSONE 5 MG TAB PO SCH (09:30)
[2023-02-20] MEDS: Lorazepam 0.5 MG TAB PO PRN (10:57)
[2023-02-20] MEDS: Lactated Ringer's 500 ML IV SCH (15:47)
[2023-02-20] MEDS: ALPRAZolam 0.5 MG TAB PO PRN (16:00)
[2023-02-20] MEDS ORDERED: Benzonatate 100 MG CAP PO SCH (17:30)
[2023-02-20] MEDS: methylPREDNISolone Sod Succ 40 MG VIAL IVP SCH (18:29)
[2023-02-20] MEDS: traZODone HCl 50 MG TAB PO PRN (21:10)
[2023-02-20] MEDS: Montelukast Sodium 10 mg Tablet PO SCH (21:10)
[2023-02-21] MEDS: Ipratropium/Albuterol 3 ML NEB NEB SCH ×3 (07:28→18:46)
[2023-02-21] MEDS: Mometasone 200 MCG/Formoterol 5 MCG 120 PUFF INHALER INH SCH ×2 (07:28→18:47)
[2023-02-21] MEDS: Enoxaparin 40 MG (0.4 mL) SYRINGE SC SCH (08:00)
[2023-02-21] MEDS: Benzonatate 100 MG CAP PO SCH ×3 (08:00→20:02)
[2023-02-21] MEDS: Gabapentin 300 MG CAP PO SCH ×3 (08:00→20:01)
[2023-02-21] MEDS: Loratadine 10 MG TAB PO SCH (08:01)
[2023-02-21] MEDS: dilTIAZem SR 90 MG CAP PO SCH ×2 (08:01→20:32)
[2023-02-21] MEDS: Hydroxychloroquine Sulfate 200 MG TAB PO SCH ×2 (08:02→20:02)
[2023-02-21] MEDS: methylPREDNISolone Sod Succ 40 MG VIAL IVP SCH ×2 (08:02→18:36)
[2023-02-21] MEDS: Fluticasone Propionate Nasal Spray 16 gm Bottle NASAL SCH (08:07)
[2023-02-21] MEDS: HYDROcodone/Acetaminophen 5/325 mg Tablet PO PRN ×3 (08:07→20:02)
[2023-02-21] MEDS: Ondansetron PF 4 MG/2 ML Vial IVP PRN ×3 (08:08→20:02)
[2023-02-21] MEDS ORDERED: predniSONE 5 MG TAB PO SCH (09:00)
[2023-02-21] MEDS: ALPRAZolam 0.5 MG TAB PO PRN ×2 (09:57→20:01)
[2023-02-21] MEDS: Guaifenesin DM 100-10/5 ML UDCUP PO PRN ×2 (11:14→23:01)
[2023-02-21] MEDS ORDERED: Iopamidol-370 76% 500 ML MDV (1 ML CHARGE) ONE (12:05)
[2023-02-21] MEDS: Montelukast Sodium 10 mg Tablet PO SCH (20:03)
[2023-02-21] MEDS ORDERED: Polyethylene Glycol 3350 17 GM Packet PO SCH (23:00)
[2023-02-21] MEDS: traZODone HCl 50 MG TAB PO PRN (23:01)
[2023-02-22] MEDS: Ipratropium/Albuterol 3 ML NEB NEB SCH ×4 (02:12→19:20)
[2023-02-22 05:15] LABS: Hemoglobin 11.6 g/dL (12.0-16.0); Mean Corpuscular HGB CONC 33.1 g/dL (32.0-36.0); Mean Corpuscular Hemoglobin 30.4 pg (27.0-31.0); Mean Corpuscular Volume 91.6 fl (78.0-98.0); Mean Platelet Volume 9.8 fL (7.4-10.4); Platelet Count 313 10x3/uL (130-400); RBC Distribution Width 12.2 % (11.5-14.5); Red Blood Cell (RBC) Count 3.82 mill/uL (4.20-5.40)
[2023-02-22 05:46] LABS: Anion Gap 13 mmol/L (10-20); BUN (Urea Nitrogen) 12 mg/dL (7.0-18.7); Calc. Creatinine Clearance 113 mL/min (70-130); Calcium 9.3 mg/dL (7.8-10.44); Carbon Dioxide 24 mmol/L (22-29); Chloride 106 mmol/L (98-107); Estimated GFR 109; Glucose 126 mg/dL (70-105); Potassium 4.9 mmol/L (3.5-5.1); Sodium 138 mmol/L (136-145)
[2023-02-22] MEDS: methylPREDNISolone Sod Succ 40 MG VIAL IVP SCH ×2 (06:17→16:52)
[2023-02-22] MEDS: Mometasone 200 MCG/Formoterol 5 MCG 120 PUFF INHALER INH SCH ×2 (06:44→19:31)
[2023-02-22] MEDS: Dextroamphetamine/Amphetamine [Adderall] 30 MG Tablet PO SCH (07:03)
[2023-02-22] MEDS: Gabapentin 300 MG CAP PO SCH ×3 (07:58→21:14)
[2023-02-22] MEDS: Enoxaparin 40 MG (0.4 mL) SYRINGE SC SCH (07:58)
[2023-02-22] MEDS: dilTIAZem SR 90 MG CAP PO SCH ×2 (07:58→21:10)
[2023-02-22] MEDS: Loratadine 10 MG TAB PO SCH (07:58)
[2023-02-22] MEDS: Hydroxychloroquine Sulfate 200 MG TAB PO SCH ×2 (07:58→21:11)
[2023-02-22] MEDS: Benzonatate 100 MG CAP PO SCH ×3 (07:59→21:14)
[2023-02-22] MEDS: Guaifenesin DM 100-10/5 ML UDCUP PO PRN ×3 (08:12→21:14)
[2023-02-22] MEDS: Fluticasone Propionate Nasal Spray 16 gm Bottle NASAL SCH (08:12)
[2023-02-22] MEDS: Ondansetron PF 4 MG/2 ML Vial IVP PRN ×2 (08:12→21:18)
[2023-02-22] MEDS: HYDROcodone/Acetaminophen 5/325 mg Tablet PO PRN ×3 (08:13→21:18)
[2023-02-22] MEDS: Polyethylene Glycol 3350 17 GM Packet PO PRN (16:52)
[2023-02-22] MEDS: traZODone HCl 50 MG TAB PO PRN (21:11)
[2023-02-22] MEDS: Montelukast Sodium 10 mg Tablet PO SCH (21:11)
[2023-02-22] MEDS: ALPRAZolam 0.5 MG TAB PO PRN (21:13)
[2023-02-23] MEDS: Ipratropium/Albuterol 3 ML NEB NEB SCH ×4 (01:44→19:06)
[2023-02-23] MEDS: methylPREDNISolone Sod Succ 40 MG VIAL IVP SCH ×2 (06:42→17:15)
[2023-02-23] MEDS: Mometasone 200 MCG/Formoterol 5 MCG 120 PUFF INHALER INH SCH ×2 (07:37→19:08)
[2023-02-23] MEDS: Benzonatate 100 MG CAP PO SCH ×3 (08:25→19:44)
[2023-02-23] MEDS: Fluticasone Propionate Nasal Spray 16 gm Bottle NASAL SCH (08:26)
[2023-02-23] MEDS: dilTIAZem SR 90 MG CAP PO SCH ×2 (08:26→19:44)
[2023-02-23] MEDS: Loratadine 10 MG TAB PO SCH (08:26)
[2023-02-23] MEDS: Enoxaparin 40 MG (0.4 mL) SYRINGE SC SCH (08:26)
[2023-02-23] MEDS: Hydroxychloroquine Sulfate 200 MG TAB PO SCH ×2 (08:26→19:44)
[2023-02-23] MEDS: HYDROcodone/Acetaminophen 5/325 mg Tablet PO PRN ×3 (08:26→19:44)
[2023-02-23] MEDS: Gabapentin 300 MG CAP PO SCH ×3 (08:26→19:43)
[2023-02-23] MEDS: Polyethylene Glycol 3350 17 GM Packet PO PRN (08:33)
[2023-02-23] MEDS: Ondansetron PF 4 MG/2 ML Vial IVP PRN ×2 (08:33→17:15)
[2023-02-23] MEDS: Guaifenesin DM 100-10/5 ML UDCUP PO PRN (13:07)
[2023-02-23] MEDS: ALPRAZolam 0.5 MG TAB PO PRN (17:23)
[2023-02-23] MEDS: Montelukast Sodium 10 mg Tablet PO SCH (19:43)
[2023-02-23 19:51] VITALS: BP 114/55; TEMP 98.2
== END 2023-02-23 20:02 | disposition home or self-care (01) | DRG 203 ==
LOC: ERS 13:20 → OBSVTOIN 18:11 → ERHOLD 18:11 → 2SW 02-19 16:45 → T4-A 02-21 19:09
PROVIDERS: ADMIT Family Medicine; ATTEND Internal Medicine
PROC: 4A043R1 Measurement of Venous Saturation, Peripheral, Percutaneous Approach (ICD-10-PCS; principal; 2023-02-18)
DX: J45.51 Severe persistent asthma with (acute) exacerbation (principal); R00.0 Tachycardia, unspecified; J45.991 Cough variant asthma; I10 Essential (primary) hypertension; Z90.49 Acquired absence of other specified parts of digestive tract; Z98.890 Other specified postprocedural states; F32.A Depression, unspecified; F41.9 Anxiety disorder, unspecified; F90.9 Attention-deficit hyperactivity disorder, unspecified type; K21.9 Gastro-esophageal reflux disease without esophagitis; Z79.899 Other long term (current) drug therapy; G43.909 Migraine, unspecified, not intractable, without status migrainosus; N83.8 Other noninflammatory disorders of ovary, fallopian tube and broad ligament; Z11.52 Encounter for screening for COVID-19; T43.625A Adverse effect of amphetamines, initial encounter
CPT/HCPCS: 36415; 71045; 71275; 74178; 76856; 80048; 80053; 80306; 82805; 83690; 83735; 83880; 84443; 84484; 84703; 85025; 85027; 85610; 85730; 86140; 93005; 93306; 94640; 94664; 94760; 96361; 96365; 96375; C9113; J1100; J1650; J1885; J2060; J2270; J2405; J2920; J2930; J3475; J3490; J7120; J7512; J7620; Q9967

== ENCOUNTER 2023-04-24 | Observation (INO) | payer BC | END 2023-04-25 13:57 | disposition home or self-care (01) | PROVIDERS: ADMIT Internal Medicine | PROC: 0B9J8ZX Drainage of Left Lower Lung Lobe, Via Natural or Artificial Opening Endoscopic, Diagnostic (ICD-10-PCS; principal; 2023-04-25) | PROC: 0BDB8ZX Extraction of Left Lower Lobe Bronchus, Via Natural or Artificial Opening Endoscopic, Diagnostic (ICD-10-PCS; 2023-04-25) | DX: D14.32 Benign neoplasm of left bronchus and lung (principal); J96.11 Chronic respiratory failure with hypoxia; J45.50 Severe persistent asthma, uncomplicated; K21.9 Gastro-esophageal reflux disease without esophagitis; J31.0 Chronic rhinitis; M33.13 Other dermatomyositis without myopathy; J18.9 Pneumonia, unspecified organism; N83.209 Unspecified ovarian cyst, unspecified side; F41.9 Anxiety disorder, unspecified; R00.0 Tachycardia, unspecified; F90.9 Attention-deficit hyperactivity disorder, unspecified type; M33.10 Other dermatomyositis, organ involvement unspecified; R91.8 Other nonspecific abnormal finding of lung field; I10 Essential (primary) hypertension; G43.909 Migraine, unspecified, not intractable, without status migrainosus; E04.1 Nontoxic single thyroid nodule; N28.1 Cyst of kidney, acquired; Z98.890 Other specified postprocedural states; Z79.899 Other long term (current) drug therapy; Z79.51 Long term (current) use of inhaled steroids; Z90.49 Acquired absence of other specified parts of digestive tract ==

== ENCOUNTER 2023-07-10 12:31 | Outpatient (CLI) | payer BC | END 2023-07-10 12:32 | disposition home or self-care (01) | LOC: BICCT 12:31 | PROVIDERS: ATTEND Specialist | DX: M33.11 Other dermatomyositis with respiratory involvement (principal); J98.4 Other disorders of lung | CPT/HCPCS: 71260; 82565 ==

== ENCOUNTER 2023-07-31 18:05 | Inpatient (IN) | payer BC ==
[2023-07-31 18:37] VITALS: BMI 22.8
[2023-07-31] MEDS ORDERED: Non-Formulary Item 1 EACH (Albuterol Sulfate [Proair Digihaler] 90 MCG Aer.Pw.Bas) IH PRN (20:06)
[2023-07-31] MEDS ORDERED: traMADol HCl 50 MG TAB PO SCH (20:15)
[2023-07-31] MEDS: Ketorolac Tromethamine 30 MG (1 mL) VIAL IVP SCH (20:44)
[2023-07-31] MEDS: Benzonatate 100 MG CAP PO PRN (20:44)
[2023-07-31] MEDS ORDERED: Ondansetron ODT 4 MG TAB PO PRN (20:50)
[2023-07-31] MEDS ORDERED: Ondansetron PF 4 MG/2 ML Vial IVP PRN (20:50)
[2023-07-31] MEDS: Albuterol 2.5 MG (3 mL) NEB NEB PRN (21:05)
[2023-07-31] MEDS: HYDROcodone/Acetaminophen 5/325 mg Tablet PO SCH (21:45)
[2023-07-31] MEDS: Hydroxychloroquine Sulfate 200 MG TAB PO SCH (21:46)
[2023-07-31] MEDS: Mycophenolate 250 MG CAP PO SCH (21:46)
[2023-07-31] MEDS: Morphine 2 MG/ML VIAL SLOW IVP PRN (21:47)
[2023-07-31] MEDS: Montelukast Sodium 10 mg Tablet PO SCH (21:47)
[2023-07-31] MEDS: Famotidine 20 MG TAB PO SCH (21:47)
[2023-07-31] MEDS: Venlafaxine 75 MG TAB PO SCH (21:47)
[2023-07-31] MEDS: Gabapentin 300 MG CAP PO SCH (21:47)
[2023-07-31] MEDS: ALPRAZolam 1 MG TAB PO PRN (21:47)
[2023-07-31] MEDS: dilTIAZem SR 90 MG CAP PO SCH (21:47)
[2023-07-31] MEDS: Promethazine HCl 12.5 MG in Sodium Chloride 0.9% 50 ML IVPB PRN (22:37)
[2023-07-31] MEDS: traZODone HCl 50 MG TAB PO SCH (23:12)
[2023-07-31] MEDS: tiZANidine HCl 4 MG TAB PO PRN (23:12)
[2023-07-31 23:50] LABS: Legionella Urinary Ag Negative (Negative); Strep pneumo Urine Ag NEGATIVE (NEGATIVE)
[2023-08-01] MEDS: Ipratropium/Albuterol 3 ML NEB NEB SCH (00:22)
[2023-08-01] MEDS: HYDROcodone/Acetaminophen 5/325 mg Tablet PO PRN (01:07)
[2023-08-01 04:55] LABS: #Basophils Less than 0.03 10x3/uL (0.0-0.2); #Eosinphils Less than 0.03 10x3/uL (0.0-0.7); %Lymphocytes 14.1 % (21.0-51.0); %Monocytes 4.9 % (0.0-10.0); %Neutrophils 80.5 % (42.0-75.0); Hematocrit 33.9 % (36.0-47.0); Hemoglobin 11.6 g/dL (12.0-16.0); Mean Corpuscular HGB CONC 34.2 g/dL (32.0-36.0); Mean Corpuscular Hemoglobin 29.4 pg (27.0-31.0); Mean Platelet Volume 9.7 fL (7.4-10.4); Platelet Count 251 10x3/uL (130-400); RBC Distribution Width 12.4 % (11.5-14.5); Red Blood Cell (RBC) Count 3.94 mill/uL (4.20-5.40)
[2023-08-01] MEDS: methylPREDNISolone Sod Succ 40 MG VIAL IVP SCH (05:12)
[2023-08-01 05:38] LABS: ALT (SGPT) 11 U/L (8-55); AST (SGOT) 20 U/L (5-34); Albumin 4.1 g/dL (3.5-5.0); Alkaline Phosphatase 56 U/L (40-110); Anion Gap 12 mmol/L (10-20); BUN (Urea Nitrogen) 10 mg/dL (7.0-18.7); Bilirubin, Total 0.2 mg/dL (0.2-1.2); Calc. Creatinine Clearance 118 mL/min (70-130); Calcium 9.1 mg/dL (7.8-10.44); Carbon Dioxide 21 mmol/L (22-29); Chloride 109 mmol/L (98-107); Estimated GFR 111; Globulin 2.3 g/dL (2.4-3.5); Glucose 128 mg/dL (70-105); Potassium 4.2 mmol/L (3.5-5.1); Protein, Total 6.4 g/dL (6.0-8.3); Sodium 138 mmol/L (136-145)
[2023-08-01] MEDS: GUAIFENESIN SF SOLN 200 MG/10 ML UDCUP PO PRN (06:32)
[2023-08-01] MEDS: Acetaminophen 325 MG TAB PO PRN (06:34)
[2023-08-01] MEDS: Mometasone 100 MCG HFA INHALER (RT USE) INH SCH (07:53)
[2023-08-01] MEDS: Fluticasone Propionate Nasal Spray 16 gm Bottle NASAL SCH (07:59)
[2023-08-01] MEDS ORDERED: Non-Formulary Item 1 EACH (Fluticasone/Umeclidin/Vilanter [Trelegy Ellipta 200-62.5-25] 1 IH SCH (09:00)
[2023-08-01] MEDS: Polyethylene Glycol 3350 17 GM Packet PO PRN (11:13)
[2023-08-01] MEDS ORDERED: Levalbuterol HCl 0.63 MG/3 ML NEB NEB PRN (11:41)
[2023-08-01] MEDS: Enoxaparin 40 MG (0.4 mL) SYRINGE SC SCH (12:19)
[2023-08-01 13:15] VITALS: BMI 22.8
[2023-08-01] MEDS: Budesonide 0.5 MG/2 ML NEB NEB SCH (18:49)
[2023-08-01] MEDS: Benzocaine/Menthol 1 LOZ LOZ PO PRN (20:02)
[2023-08-01] MEDS: traZODone HCl 50 MG TAB PO SCH (21:09)
[2023-08-01] MEDS: LevoFLOXacin 750 mg/D5W 750 MG in Premix 1 BAG IVPB SCH (21:11)
[2023-08-01] MEDS: guaiFENesin/DM ER PO SCH (21:11)
[2023-08-02] MEDS: Ondansetron PF 4 MG/2 ML Vial IVP SCH (02:01)
[2023-08-02] MEDS: Enoxaparin 40 MG (0.4 mL) SYRINGE SC SCH (08:39)
[2023-08-02] MEDS: methylPREDNISolone Sod Succ 40 MG VIAL IVP SCH (08:41)
[2023-08-02] MEDS: Benzonatate 100 MG CAP PO PRN (15:06)
[2023-08-03 11:52] VITALS: BP 140/84; TEMP 97.8
[2023-08-04] MEDS ORDERED: predniSONE 20 MG TAB PO SCH (08:00)
[2023-08-04] MEDS ORDERED: Pantoprazole DR 40 MG TAB PO SCH (09:00)
== END 2023-08-03 12:58 | disposition home or self-care (01) | DRG 205 ==
LOC: 2NO 18:05 → INTOOBSV 18:05 → OBSVTOIN 08-01 11:43 → T4-A 08-01 14:23
PROVIDERS: ADMIT Family Medicine; ATTEND Hospitalist
DX: J98.4 Other disorders of lung (principal); J96.21 Acute and chronic respiratory failure with hypoxia; K21.9 Gastro-esophageal reflux disease without esophagitis; J45.909 Unspecified asthma, uncomplicated; B36.9 Superficial mycosis, unspecified; F90.9 Attention-deficit hyperactivity disorder, unspecified type; F41.8 Other specified anxiety disorders; J32.9 Chronic sinusitis, unspecified; I10 Essential (primary) hypertension; E78.5 Hyperlipidemia, unspecified; N83.209 Unspecified ovarian cyst, unspecified side; E04.2 Nontoxic multinodular goiter; N28.1 Cyst of kidney, acquired; K52.9 Noninfective gastroenteritis and colitis, unspecified; Z79.899 Other long term (current) drug therapy; Z90.49 Acquired absence of other specified parts of digestive tract; Z98.890 Other specified postprocedural states
CPT/HCPCS: 36415; 80053; 84145; 85025; 87040; 87449; 87899; 94640; J1650; J1885; J1956; J2272; J2550; J2920; J7517; J7611; J7620; J7626

== ENCOUNTER 2023-08-06 09:16 | Outpatient (CLI) | payer BC | END 2023-08-06 09:17 | disposition home or self-care (01) | LOC: BICRAD 09:16 | PROVIDERS: ATTEND Specialist | DX: J18.9 Pneumonia, unspecified organism (principal) | CPT/HCPCS: 71046 ==

== ENCOUNTER 2023-08-16 09:53 | Outpatient (CLI) | payer BC | END 2023-08-16 09:54 | disposition home or self-care (01) | LOC: NM 09:53 | PROVIDERS: ATTEND Specialist | DX: R07.9 Chest pain, unspecified (principal) | CPT/HCPCS: 78306; A9503 ==

== ENCOUNTER 2023-08-19 20:53 | Inpatient (IN) | payer BC ==
[~2023-08-19 20:53] MED LIST changes: -Iopamidol 370 76% 100 ML VIAL ONE; +Iopamidol-370 76% 500 ML MDV (1 ML CHARGE) ONE
[2023-08-19] MEDS ORDERED: Ipratropium/Albuterol 3 ML NEB ONE (22:05)
[2023-08-19 23:06] LABS: #Basophils Less than 0.03 10x3/uL (0.0-0.2); %Basophils 0.3 % (0.0-1.0); %Eosinophils 0.5 % (0.0-10.0); %Lymphocytes 32.1 % (21.0-51.0); %Monocytes 7.9 % (0.0-10.0); %Neutrophils 59.1 % (42.0-75.0); Hematocrit 36.4 % (36.0-47.0); Hemoglobin 12.5 g/dL (12.0-16.0); Mean Corpuscular HGB CONC 34.3 g/dL (32.0-36.0); Mean Corpuscular Hemoglobin 28.8 pg (27.0-31.0); Mean Corpuscular Volume 83.9 fL (78.0-98.0); Mean Platelet Volume 9.5 fL (7.4-10.4); Platelet Count 329 10x3/uL (130-400); RBC Distribution Width 12.3 % (11.5-14.5); Red Blood Cell (RBC) Count 4.34 mill/uL (4.20-5.40)
[2023-08-19 23:11] LABS: Actual Bicarbonate (HCO3v) 19.2 mEq/L (22-28); Chloride (VBG) 104 mmol/L (98-106); Hematocrit-VBG 39 % (36.0-47.0); Hemoglobin (Hb) 13.4 g/dL (11.7-15.5); Potassium (VBG) 3.73 mmol/L (3.70-5.30); Sodium 140 mmol/L (133-146); pH (venous) 7.519 (7.32-7.43)
[2023-08-19 23:26] LABS: ALT (SGPT) 19 U/L (8-55); AST (SGOT) 24 U/L (5-34); Albumin 4.5 g/dL (3.5-5.0); Alkaline Phosphatase 84 U/L (40-110); Anion Gap 15 mmol/L (10-20); BUN (Urea Nitrogen) 11 mg/dL (7.0-18.7); Bilirubin, Total 0.5 mg/dL (0.2-1.2); Calc. Creatinine Clearance 0 mL/min (70-130); Calcium 10.1 mg/dL (7.8-10.44); Carbon Dioxide 17 mmol/L (22-29); Chloride 109 mmol/L (98-107); Estimated GFR 109; Globulin 2.9 g/dL (2.4-3.5); Glucose 84 mg/dL (70-105); Potassium 3.6 mmol/L (3.5-5.1); Protein, Total 7.4 g/dL (6.0-8.3); Sodium 137 mmol/L (136-145)
[2023-08-19 23:27] LABS: BHCG - Serum Negative (NEGATIVE); Pregs Control Background? CLEAR/WHITE (CLR/WHITE); Pregs Control Bar Appear? YES (CONTROL BAR)
[2023-08-20 00:21] LABS: Magnesium 1.9 mg/dL (1.6-2.6)
[2023-08-20] MEDS ORDERED: Dexamethasone 10 MG/ML VIAL ONE (00:45)
[2023-08-20] MEDS ORDERED: Cefepime 2 GM VIAL ONE (00:45)
[2023-08-20] MEDS ORDERED: metroNIDAZOLE 500 MG (100 mL) BAG ONE (00:45)
[2023-08-20] MEDS ORDERED: Sodium Chloride 0.9% 100 ML ONE (00:46)
[2023-08-20 00:57] LABS: Troponin I Less than 0.010 ng/mL (< 0.028)
[2023-08-20] MEDS ORDERED: Ipratropium/Albuterol 3 ML NEB ONE (00:57)
[2023-08-20] MEDS ORDERED: Ondansetron PF 4 MG/2 ML Vial ONE (01:17)
[2023-08-20] MEDS ORDERED: Morphine 4 MG/ML VIAL ONE ×2 (01:17→05:16)
[2023-08-20 01:52] LABS: Influenza A by NAA Not Detected (NotDetected); Influenza B by NAA Not Detected (NotDetected); SARS-CoV-2 NAA Rapid Test Not Detected (NotDetected)
[2023-08-20 02:50] LABS: Bilirubin Negative (Negative); Blood, Urine Trace (Negative); CAUTI Indications for Culture Dysuria,urgency,freq; Clarity Clear (Clear); Glucose, Urine (Dipstick) Normal (Negative); Ketone, Urine Negative (Negative); Leukocyte 25 Leu/uL (Negative); Nitrite Negative (Negative); Protein, Urine (Dipstick) 10 mg/dL (Neg-Trace); Squamous Epithelial 0-3 HPF (0-3); Urobilinogen Normal mg/dL (Less than 2); WBC/HPF 0-3 HPF (0-3)
[2023-08-20 02:52] LABS: Bacteria/HPF 1+ HPF (None Seen); Specific Gravity, Urine 1.054 (1.002-1.036)
[2023-08-20 02:53] LABS: Urine Culture Reflex No No
[2023-08-20] MEDS ORDERED: Ondansetron PF 4 MG/2 ML Vial IVP PRN (04:15)
[2023-08-20] MEDS ORDERED: Ipratropium/Albuterol 3 ML NEB NEB PRN (06:19)
[2023-08-20 07:58] VITALS: BMI 22.3
[2023-08-20] MEDS: Ipratropium/Albuterol 3 ML NEB NEB SCH ×2 (09:35→13:00)
[2023-08-20] MEDS ORDERED: SUMAtriptan Succinate 50 MG TAB PO PRN (09:44)
[2023-08-20] MEDS: Acetaminophen 325 MG TAB PO PRN (12:50)
[2023-08-20] MEDS: Ondansetron ODT 4 MG TAB SL PRN (12:55)
[2023-08-20] MEDS: ALPRAZolam 0.5 MG TAB PO PRN (12:56)
[2023-08-20] MEDS: Benzonatate 100 MG CAP PO PRN (13:00)
[2023-08-20] MEDS: HYDROcodone/Acetaminophen 5/325 mg Tablet PO PRN (18:35)
[2023-08-20] MEDS: guaiFENesin/Codeine 200 mg/20 mg 10 ml Cup PO SCH (18:36)
[2023-08-20] MEDS: Vancomycin (BATCH) 1.25 GM in Premix 1 BAG IVPB SCH (18:36)
[2023-08-20] MEDS: Vancomycin (BATCH) 1.5 GM in Premix 1 BAG IVPB SCH (18:37)
[2023-08-20] MEDS: Mometasone 100 MCG HFA INHALER (RT USE) INH SCH (19:18)
[2023-08-20] MEDS: Acetaminophen 500 MG TAB PO PRN (20:42)
[2023-08-20] MEDS: Mycophenolate 250 MG CAP PO SCH (20:42)
[2023-08-20] MEDS: Venlafaxine 75 MG TAB PO SCH (20:42)
[2023-08-20] MEDS: traMADol HCl 50 MG TAB PO PRN (20:43)
[2023-08-20] MEDS: Hydroxychloroquine Sulfate 200 MG TAB PO SCH (20:43)
[2023-08-20] MEDS: dilTIAZem SR 90 MG CAP PO SCH (20:43)
[2023-08-20] MEDS: Montelukast Sodium 10 mg Tablet PO SCH (20:43)
[2023-08-20] MEDS ORDERED: Non-Formulary Item 1 EACH (Dextroamphetamine/Amphetamine [Adderall] 30 MG Tablet) PO SCH (21:00)
[2023-08-20] MEDS ORDERED: Dextroamphetamine/Amphetamine [Adderall] 30 MG Tablet PO SCH (21:00)
[2023-08-21 05:27] LABS: #Basophils Less than 0.03 10x3/uL (0.0-0.2); %Basophils 0.3 % (0.0-1.0); %Eosinophils 1.5 % (0.0-10.0); %Lymphocytes 41.6 % (21.0-51.0); %Monocytes 9.7 % (0.0-10.0); %Neutrophils 46.6 % (42.0-75.0); Hematocrit 31.2 % (36.0-47.0); Hemoglobin 10.8 g/dL (12.0-16.0); Mean Corpuscular HGB CONC 34.6 g/dL (32.0-36.0); Mean Corpuscular Hemoglobin 30.2 pg (27.0-31.0); Mean Corpuscular Volume 87.2 fL (78.0-98.0); Mean Platelet Volume 9.4 fL (7.4-10.4); Platelet Count 265 10x3/uL (130-400); RBC Distribution Width 12.6 % (11.5-14.5); Red Blood Cell (RBC) Count 3.58 mill/uL (4.20-5.40)
[2023-08-21] MEDS: Dexamethasone 4 MG TAB PO SCH (08:32)
[2023-08-21] MEDS: Ketorolac Tromethamine 30 MG (1 mL) VIAL IVP PRN (08:34)
[2023-08-21] MEDS: Loratadine 10 MG TAB PO SCH (08:45)
[2023-08-21] MEDS ORDERED: Cetirizine HCl 10 MG TAB PO SCH (09:00)
[2023-08-21] MEDS ORDERED: Non-Formulary Item 1 EACH (Fluticasone/Umeclidin/Vilanter [Trelegy Ellipta 200-62.5-25] 1 IH SCH (09:00)
[2023-08-21] MEDS ORDERED: Magnevist 469MG/ML 20 ML VIAL ONE (09:35)
[2023-08-21] MEDS: Doxycycline 100 MG CAP PO SCH ×2 (10:52→20:18)
[2023-08-21] MEDS: Morphine 2 MG/ML VIAL SLOW IVP PRN (15:44)
[2023-08-21] MEDS: Promethazine HCl 25 MG in Sodium Chloride 0.9% 50 ML IVPB PRN (16:50)
[2023-08-21] MEDS: Cefepime 2 GM in Sodium Chloride 0.9% 100 ML IVPB SCH (20:18)
[2023-08-22 05:49] LABS: #Basophils Less than 0.03 10x3/uL (0.0-0.2); #Eosinphils Less than 0.03 10x3/uL (0.0-0.7); %Eosinophils 0.2 % (0.0-10.0); %Lymphocytes 20.8 % (21.0-51.0); %Monocytes 7.8 % (0.0-10.0); %Neutrophils 70.9 % (42.0-75.0); Hematocrit 32.5 % (36.0-47.0); Hemoglobin 10.8 g/dL (12.0-16.0); Mean Corpuscular HGB CONC 33.2 g/dL (32.0-36.0); Mean Corpuscular Hemoglobin 29.6 pg (27.0-31.0); Mean Platelet Volume 9.8 fL (7.4-10.4); Platelet Count 285 10x3/uL (130-400); RBC Distribution Width 12.5 % (11.5-14.5); Red Blood Cell (RBC) Count 3.65 mill/uL (4.20-5.40)
[2023-08-22 06:14] LABS: Anion Gap 13 mmol/L (10-20); BUN (Urea Nitrogen) 19 mg/dL (7.0-18.7); Calc. Creatinine Clearance 119 mL/min (70-130); Carbon Dioxide 24 mmol/L (22-29); Chloride 107 mmol/L (98-107); Estimated GFR 115; Glucose 106 mg/dL (70-105); Potassium 4.4 mmol/L (3.5-5.1); Sodium 140 mmol/L (136-145)
[2023-08-22 12:25] VITALS: BP 118/73; TEMP 97.6
== END 2023-08-22 12:55 | disposition home or self-care (01) | DRG 202 ==
LOC: ERS 20:53 → SJJU 08-20 06:27 → OBSVTOIN 08-21 12:23
PROVIDERS: ADMIT Student in an Organized Health Care Education/Training Program; ATTEND Internal Medicine
DX: J45.901 Unspecified asthma with (acute) exacerbation (principal); M33.13 Other dermatomyositis without myopathy; J20.9 Acute bronchitis, unspecified; F41.9 Anxiety disorder, unspecified; K21.9 Gastro-esophageal reflux disease without esophagitis; I10 Essential (primary) hypertension; E78.5 Hyperlipidemia, unspecified; G43.909 Migraine, unspecified, not intractable, without status migrainosus; N28.1 Cyst of kidney, acquired; Z79.899 Other long term (current) drug therapy; Z90.49 Acquired absence of other specified parts of digestive tract; Z95.5 Presence of coronary angioplasty implant and graft; Z98.890 Other specified postprocedural states
CPT/HCPCS: 36415; 70450; 71045; 71275; 74177; 74183; 80048; 80053; 81001; 82805; 83605; 83735; 83880; 84145; 84484; 84703; 85025; 85379; 87040; 87086; 93005; 94640; 96365; 96367; 96375; 96376; A9579; G0378; J0692; J1100; J1885; J2270; J2272; J2405; J2550; J3370; J3490; J7517; J7620; J8540; Q0162; Q9967

== ENCOUNTER 2023-10-01 15:21 | Outpatient (CLI) | payer BC | END 2023-10-01 15:22 | disposition home or self-care (01) | LOC: BICRAD 15:21 | PROVIDERS: ATTEND Internal Medicine Rheumatology | DX: R07.9 Chest pain, unspecified (principal); R05.9 Cough, unspecified | CPT/HCPCS: 71046 ==

== ENCOUNTER 2023-12-24 08:39 | Outpatient (CLI) | payer BC | END 2023-12-24 08:40 | disposition home or self-care (01) | LOC: BICCT 08:39 | PROVIDERS: ATTEND Internal Medicine | DX: R05.3 Chronic cough (principal); J98.11 Atelectasis; S22.32XD Fracture of one rib, left side, subsequent encounter for fracture with routine healing; S22.31XD Fracture of one rib, right side, subsequent encounter for fracture with routine healing | CPT/HCPCS: 71250 ==

== ENCOUNTER 2023-12-27 14:10 | Outpatient (CLI) | payer BC | END 2023-12-27 14:11 | disposition home or self-care (01) | LOC: CT 14:10 | PROVIDERS: ATTEND Specialist | DX: J84.9 Interstitial pulmonary disease, unspecified (principal); J98.11 Atelectasis | CPT/HCPCS: 71250 ==

== ENCOUNTER 2024-01-21 11:32 | Outpatient (CLI) | payer BC | END 2024-01-21 11:33 | disposition home or self-care (01) | LOC: BICRAD 11:32 | DX: R05.3 Chronic cough (principal); I82.91 Chronic embolism and thrombosis of unspecified vein; J96.11 Chronic respiratory failure with hypoxia; M35.9 Systemic involvement of connective tissue, unspecified | CPT/HCPCS: 70220 ==

== ENCOUNTER 2024-01-29 11:18 | Observation (INO) | payer BC ==
[2024-01-29] MEDS ORDERED: Ipratropium/Albuterol 3 ML NEB ONE (11:39)
[2024-01-29 12:06] LABS: #Basophils Less than 0.03 10x3/uL (0.0-0.2); %Basophils 0.5 % (0.0-1.0); %Eosinophils 3.9 % (0.0-10.0); %Monocytes 8.9 % (0.0-10.0); %Neutrophils 39.5 % (42.0-75.0); Hematocrit 34.1 % (36.0-47.0); Hemoglobin 11.9 g/dL (12.0-16.0); Mean Corpuscular HGB CONC 34.9 g/dL (32.0-36.0); Mean Corpuscular Hemoglobin 29.1 pg (27.0-31.0); Mean Corpuscular Volume 83.4 fL (78.0-98.0); Mean Platelet Volume 9.4 fL (7.4-10.4); Platelet Count 335 10x3/uL (130-400); RBC Distribution Width 12.8 % (11.5-14.5); Red Blood Cell (RBC) Count 4.09 mill/uL (4.20-5.40)
[2024-01-29 12:17] LABS: Actual Bicarbonate (HCO3v) 21.1 mEq/L (22-28); Analyzer IN Cardio ER; Base Excess -2.3 mEq/L (-2.0 to +3.0); Calcium, Ionized (venous) 1.17 mmol/L (1.16-1.32); Chloride (VBG) 102 mmol/L (98-106); Hematocrit-VBG 37 % (36.0-47.0); Hemoglobin (Hb) 12.7 g/dL (11.7-15.5); Potassium (VBG) 3.96 mmol/L (3.70-5.30); Sodium 141 mmol/L (133-146); pH (venous) 7.437 (7.32-7.43)
[2024-01-29] MEDS ORDERED: Ondansetron PF 4 MG/2 ML Vial ONE (12:19)
[2024-01-29] MEDS ORDERED: Morphine 4 MG/ML VIAL ONE (12:19)
[2024-01-29] MEDS ORDERED: methylPREDNISolone Sod Succ/PF 125 MG/2 ML VIAL ONE ×2 (12:20→12:22)
[2024-01-29] MEDS ORDERED: cefTRIAXone (ROCEPHIN) 1 GM VIAL ONE (12:20)
[2024-01-29] MEDS ORDERED: Sodium Chloride 0.9% 100 ML ONE (12:20)
[2024-01-29] MEDS ORDERED: Benzonatate 100 MG CAP ONE ×2 (12:22→16:45)
[2024-01-29 12:26] LABS: ALT (SGPT) 16 U/L (8-55); AST (SGOT) 22 U/L (5-34); Albumin 4.3 g/dL (3.5-5.0); Alkaline Phosphatase 99 U/L (40-110); Anion Gap 18 mmol/L (10-20); BUN (Urea Nitrogen) 13 mg/dL (7.0-18.7); Bilirubin, Total 0.3 mg/dL (0.2-1.2); Calc. Creatinine Clearance 0 mL/min (70-130); Calcium 9.6 mg/dL (7.8-10.44); Carbon Dioxide 19 mmol/L (22-29); Chloride 107 mmol/L (98-107); Estimated GFR 111; Globulin 2.9 g/dL (2.4-3.5); Glucose 93 mg/dL (70-105); Potassium 3.8 mmol/L (3.5-5.1); Protein, Total 7.2 g/dL (6.0-8.3); Sodium 140 mmol/L (136-145)
[2024-01-29] MEDS ORDERED: Magnesium 2 GM/50 ML BAG (IN WATER) ONE (13:30)
[2024-01-29 13:35] LABS: Bilirubin Negative (Negative); Blood, Urine Negative (Negative); CAUTI Indications for Culture Fever or rigors; Clarity Clear (Clear); Glucose, Urine (Dipstick) Normal (Negative); Ketone, Urine Negative (Negative); Leukocyte Negative Leu/uL (Negative); Nitrite Negative (Negative); Protein, Urine (Dipstick) Negative (Neg-Trace); RBC/HPF 0-3 HPF (0-3); Specific Gravity, Urine 1.006 (1.002-1.036); Squamous Epithelial 0-3 HPF (0-3); Urobilinogen Normal mg/dL (Less than 2); WBC/HPF None Seen HPF (0-3); pH, Urine 7.5 (5.0-9.0)
[2024-01-29 13:47] LABS: Bacteria/HPF None Seen HPF (None Seen); Urine Culture Reflex No No
[2024-01-29] MEDS ORDERED: Albuterol 200 PUFF (6.7GM INHALER) INH PRN (15:04)
[2024-01-29] MEDS ORDERED: Acetaminophen 650 MG Suppository PR PRN (15:09)
[2024-01-29] MEDS ORDERED: Calcium Carbonate 500 MG ChewTAB PO PRN (15:09)
[2024-01-29 15:11] LABS: Lactic Acid 1.67 mmol/L (0.5-2.2)
[2024-01-29] MEDS: Vancomycin (BATCH) 1.5 GM in Premix 1 BAG IVPB SCH (16:08)
[2024-01-29] MEDS ORDERED: ALPRAZolam 1 MG TAB ONE (16:49)
[2024-01-29] MEDS: ALPRAZolam 1 MG TAB PO PRN (17:00)
[2024-01-29] MEDS ORDERED: Morphine 2 MG/ML VIAL ONE (19:14)
[2024-01-29 19:23] LABS: Legionella Urinary Ag Negative (Negative)
[2024-01-29 19:24] LABS: Strep pneumo Urine Ag NEGATIVE (NEGATIVE)
[2024-01-29] MEDS: Morphine 2 MG/ML VIAL SLOW IVP PRN (19:36)
[2024-01-29 19:43] LABS: Influenza A by NAA Not Detected (NotDetected); Influenza B by NAA Not Detected (NotDetected); RSV by NAA Not Detected (NotDetected); SARS-CoV-2 NAA Rapid Test Not Detected (NotDetected)
[2024-01-29] MEDS: Albuterol 2.5 MG (3 mL) NEB NEB SCH (20:35)
[2024-01-29] MEDS: Budesonide 0.5 MG/2 ML NEB INH SCH (20:36)
[2024-01-29] MEDS: Arformoterol 15 MCG/2 ML NEB NEB SCH (20:37)
[2024-01-29 20:38] VITALS: BMI 20.8
[2024-01-29] MEDS ORDERED: Arformoterol 15 MCG/2 ML NEB NEB SCH (21:00)
[2024-01-29] MEDS: Gabapentin 300 MG CAP PO SCH (21:23)
[2024-01-29] MEDS: Benzonatate 100 MG CAP PO SCH (21:23)
[2024-01-29] MEDS: Famotidine/PF 20 mg/2ml Vial SLOW IVP SCH (21:23)
[2024-01-29] MEDS: dilTIAZem SR 90 MG CAP PO SCH (21:23)
[2024-01-29] MEDS: Famotidine 20 MG TAB PO SCH (21:24)
[2024-01-29] MEDS: Doxycycline 100 MG CAP PO SCH (21:24)
[2024-01-29] MEDS: Ketorolac Tromethamine 30 MG (1 mL) VIAL IVP PRN (21:25)
[2024-01-30] MEDS: Ondansetron PF 4 MG/2 ML Vial IVP PRN (03:35)
[2024-01-30 05:38] LABS: #Basophils Less than 0.03 10x3/uL (0.0-0.2); #Eosinophils Less than 0.03 10x3/uL (0.0-0.7); %Basophils 0.1 % (0.0-1.0); %Lymphocytes 16.3 % (21.0-51.0); %Neutrophils 74.5 % (42.0-75.0); Hematocrit 29.5 % (36.0-47.0); Hemoglobin 10.1 g/dL (12.0-16.0); Mean Corpuscular HGB CONC 34.2 g/dL (32.0-36.0); Mean Corpuscular Hemoglobin 29.4 pg (27.0-31.0); Mean Corpuscular Volume 85.8 fL (78.0-98.0); Mean Platelet Volume 9.8 fL (7.4-10.4); Platelet Count 290 10x3/uL (130-400); RBC Distribution Width 13.1 % (11.5-14.5); Red Blood Cell (RBC) Count 3.44 mill/uL (4.20-5.40)
[2024-01-30 05:43] LABS: Anion Gap 13 mmol/L (10-20); BUN (Urea Nitrogen) 10 mg/dL (7.0-18.7); Calc. Creatinine Clearance 132 mL/min (70-130); Calcium 8.3 mg/dL (7.8-10.44); Carbon Dioxide 20 mmol/L (22-29); Chloride 110 mmol/L (98-107); Estimated GFR 121; Glucose 116 mg/dL (70-105); Sodium 139 mmol/L (136-145)
[2024-01-30] MEDS: Loratadine 10 MG TAB PO SCH (08:59)
[2024-01-30] MEDS: Acetaminophen 325 MG TAB PO PRN (09:04)
[2024-01-30 11:26] VITALS: BMI 20.9
[2024-01-30 11:35] LABS: Calcium 8.9 mg/dL (7.8-10.44)
[2024-01-30] MEDS: Ondansetron ODT 4 MG TAB PO PRN (14:28)
[2024-01-30] MEDS: SUMAtriptan Succinate 25 MG TAB PO SCH (15:23)
[2024-01-30 15:47] VITALS: BP 119/64; TEMP 98.2
== END 2024-01-30 18:03 | disposition home or self-care (01) ==
LOC: ERS 11:18 → ERHOLD 14:52 → INTOOBSV 14:52 → OBS 19:55
PROVIDERS: ADMIT Student in an Organized Health Care Education/Training Program; ATTEND Family Medicine
DX: J45.909 Unspecified asthma, uncomplicated (principal); I10 Essential (primary) hypertension; E78.5 Hyperlipidemia, unspecified; F41.9 Anxiety disorder, unspecified; F32.A Depression, unspecified; K21.9 Gastro-esophageal reflux disease without esophagitis; M33.13 Other dermatomyositis without myopathy; Z90.49 Acquired absence of other specified parts of digestive tract; Z79.51 Long term (current) use of inhaled steroids; Z79.1 Long term (current) use of non-steroidal anti-inflammatories (NSAID); Z79.2 Long term (current) use of antibiotics; Z79.899 Other long term (current) drug therapy
CPT/HCPCS: 0241U; 36415; 71045; 71275; 80048; 80053; 81001; 82306; 82805; 83605; 84702; 85025; 87040; 87086; 87449; 87633; 87798; 87899; 94640; 94760; 96375; 96376; G0378; J0696; J1885; J2272; J2405; J2919; J3370; J3475; J3490; J7611; J7620; J7626; Q0162; Q9967

== ENCOUNTER 2024-03-05 14:24 | Outpatient (CLI) | payer OTHER | END 2024-03-05 14:25 | disposition home or self-care (01) | LOC: BICCT 14:24 | PROVIDERS: ATTEND Internal Medicine Rheumatology | DX: R05.9 Cough, unspecified (principal); M33.10 Other dermatomyositis, organ involvement unspecified; S22.42XD Multiple fractures of ribs, left side, subsequent encounter for fracture with routine healing; S22.41XD Multiple fractures of ribs, right side, subsequent encounter for fracture with routine healing | CPT/HCPCS: 71250 ==

== ENCOUNTER 2024-03-06 08:30 | Outpatient (CLI) | payer OTHER | END 2024-03-06 08:31 | disposition home or self-care (01) | LOC: ULT 08:30 | PROVIDERS: ATTEND Internal Medicine Rheumatology | DX: D30.10 Benign neoplasm of unspecified renal pelvis (principal); N28.1 Cyst of kidney, acquired | CPT/HCPCS: 76770 ==

== ENCOUNTER 2024-10-16 09:11 | Outpatient (CLI) | payer OTHER | END 2024-10-16 09:12 | disposition home or self-care (01) | LOC: SCSMRI 09:11 | PROVIDERS: ATTEND Specialist | DX: C64.2 Malignant neoplasm of left kidney, except renal pelvis (principal); N28.1 Cyst of kidney, acquired | CPT/HCPCS: 74183; A9577 ==